=== PATIENT | male | born 1975 | race Caucasian/White ===

== ENCOUNTER → 2017-12-14 08:56 | Outpatient (CLI) | payer MEDICARE, MEDICAID, SELFPAY ==
[2017-12-14 11:12] LABS: Hemoglobin A1C 7.1 % (4.5-6.2)
[2017-12-14 13:11] LABS: ALT 44 U/L (12-78); AST 39 U/L (15-37); Albumin 3.6 g/dL (3.4-5.0); Alkaline Phosphatase 84 U/L (46-116); Bilirubin, Direct 0.18 mg/dL (0.00-0.20); Bilirubin, Total 0.5 mg/dL (0.2-1.0); CREATININE 0.79 mg/dL (0.70-1.30); Potassium 3.6 mmol/L (3.5-5.1); Total Protein 8.1 g/dL (6.4-8.2); Uric Acid 5.8 mg/dL (3.5-7.2)
[2017-12-14 13:25] LABS: Cholesterol 188 mg/dL (50-200); HDL Cholesterol 51 mg/dL (40-60); LDL CHOLESTEROL 115 mg/dL (<100); Triglyceride 153 mg/dL (30-150)
== END ==
PROVIDERS: PCP Family Medicine; Visit Provider Family Medicine
DX: I10 Essential (primary) hypertension (principal); E11.65 Type 2 diabetes mellitus with hyperglycemia; K21.9 Gastro-esophageal reflux disease without esophagitis; K76.0 Fatty (change of) liver, not elsewhere classified; M79.672 Pain in left foot; E66.01 Morbid (severe) obesity due to excess calories
CPT/HCPCS: 36415; 80061; 80076; 83721; 82565; 83036; 84132; 84550

== ENCOUNTER 2018-01-20 15:05 | Emergency (ER) | payer MEDICARE, MEDICAID, SELFPAY ==
[2018-01-20 15:15] VITALS: BP 195/92; PULSE 100; RESP 18; TEMP 37.2; O2SAT 94
[2018-01-20 18:43] VITALS: BP 188/86; PULSE 103; RESP 18; TEMP 36.8; O2SAT 93
--- NOTE | 2018-01-20 19:53 | ED.GENADUL_ITS ---
Discharge Plan Disposition Patient Disposition: HOME Condition: Stable Discharge Details Chief Complaint: RespSymp Clinical Impression: Acute bronchitis Primary Care Provider: Margarito Rashid ED Provider: Arleen Jim Home Meds and New Rx's Prescriptions: New prednisone 50 mg tablet 50 mg PO DAILY 5 Days Qty: 5 RF: 0 levofloxacin [Levaquin] 750 mg tablet 750 mg PO DAILY Qty: 4 RF: 0 No Action multivitamin [Daily Vitamin] 1 EACH tablet 1 ea PO DAILY RF: 0 clonazepam 0.5 MG tablet 0.5 mg PO BID PRNQty: 30 RF: 1 pen needle, diabetic 1 EACH needle 1 ea Miscellaneous TID Qty: 270 RF: 4 esomeprazole magnesium [Nexium] 20 MG capsule,delayed release(DR/EC) 20 mg PO DAILY Qty: 90 RF: 4 hydrochlorothiazide 25 MG tablet 1 tab PO QAM Qty: 90 RF: 4 rosuvastatin [Crestor] 40 MG tablet 0.5 tab PO HS Qty: 45 RF: 4 metoprolol succinate 100 MG tablet extended release 24 hr 100 mg PO DAILY Qty: 90 RF: 3 blood sugar diagnostic [Blood Glucose Test] 1 EACH strip 1 ea Miscellaneous TID Qty: 300 RF: 4 metformin [Glucophage] 1,000 MG tablet 1,000 mg PO BID Qty: 180 RF: 4 lancets 1 EACH misc 1 ea Miscellaneous TID Qty: 300 RF: 4 benzonatate 200 MG capsule 200 mg PO tid prn for cough Qty: 30 RF: 0 inhalational spacing device [Aerochamber Plus Flow-Vu] 1 EACH spacer 1 ea Miscellaneous PRN Qty: 1 RF: 0 insulin glargine [Basaglar KwikPen U-100 Insulin] 100 UNIT/1 ML insulin pen 84 unit SQ HS Qty: 39 RF: 3 lisinopril 40 MG tablet 1 tab PO DAILY Qty: 90 RF: 4 insulin aspart U-100 [Novolog Flexpen U-100 Insulin] 100 UNIT/1 ML insulin pen 20 - 25 units SQ AC Qty: 6 RF: 11 gabapentin 100 MG capsule 100 mg PO BID Qty: 60 RF: 2 aspirin [Children's Aspirin] 81 MG tablet,chewable 81 mg PO DAILY RF: 0 Discharge Instructions Instructions: Acute Bronchitis (ED) Additional Instructions: Drink plenty of fluids and get plenty of rest. Take Tylenol or Motrin as needed and directed for pain or fever. Take the antibiotics and steroids until finished. You should receive a call from care management regarding follow-up with a primary care doctor in 1 week for reevaluation and for referral to podiatry. Return to the emergency department any worsening or new concerning symptoms. Discharge Data Discharge Physician: Arleen Jim Medical Decision Making Patient is a 42-year-old male with history of diabetes, GERD, hypertension, hyperlipidemia who presents for cough, shortness of breath, nasal congestion for the past 5 days. Patient was here during significant ED surge and waited approximately 4 hours to be seen. He is pleasant and thankful. His oxygen saturation is 96% on room air. He is afebrile. His blood pressure is hypertensive at 188/86. He states he has been taking all of his medications regularly. He states his blood sugars have been normal and yesterday were 125. He has diffuse rhonchi and wheezing throughout. He has bilateral sinus tenderness and is noted to have nasal voice when talking. His ears and pharynx are normal to inspection. He is morbidly obese but otherwise appears nontoxic and in no acute distress. Presentation appears consistent with likely acute bronchitis versus pneumonia. Patient states that he would rather prescriptions for antibiotics and steroids and discharge. He is declining labs and chest x-ray. Patient is agreeable to albuterol neb treatment here. He has been taking Tessalon Perles at home without relief. He states he has responded to Robitussin with codeine before. We will send home with dose this evening as well as prescription for home. We will also give dose of Levaquin and prednisone here and prescription for home. Will treat with Levaquin due to patient's history of diabetes. Will place patient on care management list to arrange for follow-up appointment with his primary care doctor within the next week for reevaluation for his likely bronchitis as well as for podiatry referral for complaint of a chronic left foot ulcer. HPI General Date/Time Provider Initiated Documentation: 01/20/18 18:48 . Related Data Home Medications Medication Instructions Recorded Confirmed multivitamin [Daily Vitamin] 1 ea PO DAILY 06/04/13 01/20/18 aspirin [Children's Aspirin] 81 mg PO DAILY 12/22/13 01/20/18 clonazepam 0.5 mg PO BID PRN #30 tab-cap 02/09/01/20/18 pen needle, diabetic #270 03/29/16 01/20/18 esomeprazole magnesium [Nexium] 20 mg PO DAILY #90 tab-cap 01/25/17 01/20/18 hydrochlorothiazide 1 tab PO QAM #90 tab-cap 03/16/17 01/20/18 rosuvastatin [Crestor] 0.5 tab PO HS #45 tab-cap 04/26/17 01/20/18 blood sugar diagnostic [Glucose #300 strip 05/10/17 01/20/18 Test Strip] lancets #300 ea 05/10/17 01/20/18 metformin [Glucophage] 1,000 mg PO BID #180 tab-cap 05/10/17 01/20/18 metoprolol succinate 100 mg PO DAILY #90 tab-cap 05/10/17 01/20/18 benzonatate 200 mg PO tid prn for cough #30 05/23/17 01/20/18 tab-cap inhalational spacing device #1 unit 05/23/17 01/20/18 [Aerochamber Plus Flow-Vu] insulin glargine [Basaglar Kwikpen 84 unit SQ HS #39 pen 10/31/17 01/20/18 U-100] lisinopril 1 tab PO DAILY #90 tab 11/18/17 01/20/18 gabapentin 100 mg PO BID #60 tab-cap 12/14/17 01/20/18 insulin aspart U-100 [Novolog 20 - 25 units SQ AC #6 pen 12/14/17 01/20/18 Flexpen] levofloxacin [Levaquin] 750 mg PO DAILY #4 tab 01/20/18 prednisone 50 mg PO DAILY 5 Days #5 tab 01/20/18 Previous Rx's Medication Instructions Recorded esomeprazole magnesium [Nexium] 20 mg PO DAILY #90 tab-cap 01/25/17 hydrochlorothiazide 1 tab PO QAM #90 tab-cap 03/16/17 rosuvastatin [Crestor] 0.5 tab PO HS #45 tab-cap 04/26/17 blood sugar diagnostic [Glucose #300 strip 05/10/17 Test Strip] lancets #300 ea 05/10/17 metformin [Glucophage] 1,000 mg PO BID #180 tab-cap 05/10/17 metoprolol succinate 100 mg PO DAILY #90 tab-cap 05/10/17 benzonatate 200 mg PO tid prn for cough #30 05/23/17 tab-cap inhalational spacing device #1 unit 05/23/17 [Aerochamber Plus Flow-Vu] insulin glargine [Basaglar Kwikpen 84 unit SQ HS #39 pen 10/31/17 U-100] lisinopril 1 tab PO DAILY #90 tab 11/18/17 gabapentin 100 mg PO BID #60 tab-cap 12/14/17 insulin aspart U-100 [Novolog 20 - 25 units SQ AC #6 pen 12/14/17 Flexpen] levofloxacin [Levaquin] 750 mg PO DAILY #4 tab 01/20/18 prednisone 50 mg PO DAILY 5 Days #5 tab 01/20/18 Allergies Allergy/AdvReac Type Severity Reaction Status Date / Time No Known Allergies Allergy Unverified 01/20/18 16:32 General Stated Complaint: RespSymp ARLEY: 3 PFSH Social History Smoking/Tobacco Use Status: Current-Occasional Surgical History Repair of umbilical hernia Course Vital Signs Temperature 99.0 F 01/20/18 15:15 Pulse 100 H 01/20/18 15:15 Respiratory Rate 18 01/20/18 15:15 Blood Pressure 195/92 H 01/20/18 15:15 Pulse Oximetry 94 L 01/20/18 15:15 Temperature 98.2 F 01/20/18 18:43 Temperature Source Skin 01/20/18 18:43 Pulse 103 H 01/20/18 18:43 Respiratory Rate 18 01/20/18 18:43 Respiratory Effort 01/20/18 16:33 Blood Pressure 188/86 H 01/20/18 18:43 Blood Pressure Position Sitting 01/20/18 15:15 Pulse Oximetry 93 L 01/20/18 18:43 Oxygen Delivery Method Room Air 01/20/18 18:43 Oxygen Flow Rate 0 01/20/18 18:43 Pain Level 3 01/20/18 18:43
[2018-01-20 20:00] VITALS: PULSE 103; RESP 18; O2SAT 93
[2018-01-20] MEDS: Albuterol/Ipratropium 3 ML UPD VIAL UPD (20:00)
[2018-01-20] MEDS: predniSONE 20 MG TAB 60 MG PO (20:02)
[2018-01-20] MEDS: LEVOFLOXACIN 500 MG, LEVOFLOXACIN 250 MG 750 MG PO (20:03)
[2018-01-20 20:10] VITALS: BP 188/87; PULSE 104; RESP 18; TEMP 37.8; O2SAT 93
[2018-01-20 20:13] VITALS: PULSE 104; RESP 18; O2SAT 93
[2018-01-20] MEDS: guaiFENesin/CODEINE PHOSPHATE 10 ML CUP PO (20:16)
[2018-01-20] MEDS: Albuterol HFA 8 GM 60 PUFF INH IH (20:20)
[2018-01-20 20:25] VITALS: BP 188/87; PULSE 104; RESP 18; TEMP 37.8; O2SAT 93
--- NOTE | 2018-01-23 13:09 | PDOC.ERCMPRO ---
Care Management Progress Note 01/23/18-Pt seen on 01/20/18 for bronchitis and foot ulcer by Dr. Roseann Jim. Referral f/u faxed to [facility].
== END 2018-01-20 20:28 | disposition home or self-care (01) ==
PROVIDERS: Emergency Provider Physician Assistant; PCP Family Medicine
DX: J20.9 Acute bronchitis, unspecified (principal); E11.9 Type 2 diabetes mellitus without complications; Z79.4 Long term (current) use of insulin; I10 Essential (primary) hypertension
CPT/HCPCS: 94640; 99283; 99281; J7512; J7620

== ENCOUNTER 2018-12-20 08:06 | Outpatient (CLI) | payer MEDICARE, MEDICAID, SELFPAY ==
[2018-12-20 09:19] LABS: CREATININE 0.86 mg/dL (0.70-1.30); Potassium 3.6 mmol/L (3.5-5.1)
[2018-12-20 09:26] LABS: Hemoglobin A1C 7.1 % (4.5-6.2)
== END 2018-12-20 08:26 ==
PROVIDERS: PCP Family Medicine; Visit Provider Family Medicine
DX: E11.9 Type 2 diabetes mellitus without complications (principal)
CPT/HCPCS: 36415; 82565; 83036; 84132

== ENCOUNTER → 2019-03-29 12:43 | Outpatient (BNVA) | payer MEDICARE, MEDICAID, SELFPAY | PROVIDERS: PCP Family Medicine; Referring Provider Family Medicine; Visit Provider Nurse Practitioner Gerontology | DX: N48.0 Leukoplakia of penis (principal); L98.499 Non-pressure chronic ulcer of skin of other sites with unspecified severity; R30.0 Dysuria; E11.42 Type 2 diabetes mellitus with diabetic polyneuropathy; Z79.4 Long term (current) use of insulin; I10 Essential (primary) hypertension | CPT/HCPCS: 99204; 99215 ==

== ENCOUNTER 2019-03-29 13:56 | Outpatient (REF) | payer MEDICARE, MEDICAID, SELFPAY | END 2019-03-29 14:16 | LOC: LBN 13:56 | PROVIDERS: PCP Family Medicine; Visit Provider Nurse Practitioner Gerontology | DX: R30.0 Dysuria (principal) | CPT/HCPCS: 87077; 87070; 87205 ==

== ENCOUNTER → 2019-04-12 10:28 | Outpatient (BNVA) | payer MEDICARE, MEDICAID, SELFPAY | PROVIDERS: PCP Family Medicine; Referring Provider Family Medicine; Visit Provider Nurse Practitioner Gerontology | DX: N48.0 Leukoplakia of penis (principal); L98.499 Non-pressure chronic ulcer of skin of other sites with unspecified severity; E11.42 Type 2 diabetes mellitus with diabetic polyneuropathy; Z79.4 Long term (current) use of insulin | CPT/HCPCS: 99213 ==

== ENCOUNTER → 2019-04-27 13:41 | Outpatient (BNVA) | payer MEDICARE, MEDICAID, SELFPAY | PROVIDERS: PCP Family Medicine; Referring Provider Family Medicine; Visit Provider Urology | DX: N48.0 Leukoplakia of penis (principal); E11.42 Type 2 diabetes mellitus with diabetic polyneuropathy | CPT/HCPCS: 99213 ==

== ENCOUNTER 2019-05-30 11:34 | Outpatient (CLI) | payer MEDICARE, MEDICAID, SELFPAY ==
[2019-05-30 13:03] LABS: Calculated LDL 105 mg/dL (<100); Cholesterol 180 mg/dL (<200); HDL Cholesterol 47 mg/dL (40-60); Hemoglobin A1C 7.9 % (3.8-5.6); Triglyceride 140 mg/dL (<150)
[2019-05-31 14:33] LABS: PSA, Screening 0.2 ng/mL (0.0-2.5)
== END 2019-05-30 11:54 ==
PROVIDERS: PCP Family Medicine; Visit Provider Family Medicine
DX: E78.5 Hyperlipidemia, unspecified (principal); R73.9 Hyperglycemia, unspecified; N13.8 Other obstructive and reflux uropathy; N40.1 Benign prostatic hyperplasia with lower urinary tract symptoms; Z12.5 Encounter for screening for malignant neoplasm of prostate
CPT/HCPCS: 36415; 80061; 84153; 83036

== ENCOUNTER 2019-09-29 05:59 | Emergency (ER) | payer MEDICARE, MEDICAID, SELFPAY ==
[2019-09-29 06:03] VITALS: BP 160/67; PULSE 104; TEMP 36.5; O2SAT 97
--- NOTE | 2019-09-29 06:10 | W.ED.GENAD ---
Discharge Plan Disposition Patient Disposition: HOME Condition: Stable Discharge Details Chief Complaint: Urinary Clinical Impression: Acute UTI Primary Care Provider: Margarito Rashid ED Provider: Gold Martin Guild Meds and New Rx's Prescriptions: New levofloxacin 750 mg tablet 750 mg PO DAILY Qty: 5 RF: 0 Continued terbinafine HCl 250 mg tablet 250 mg PO DAILY Qty: 30 RF: 0 lisinopril 40 mg tablet 40 mg PO DAILY Qty: 90 RF: 4 (DME) pen needle, diabetic 31 gauge x 1/6 needle 1 ea Miscellaneous TID Qty: 360 RF: 3 rosuvastatin [Crestor] 40 mg tablet 20 mg PO HS Qty: 45 RF: 4 semaglutide 3 mg tablet 3 mg PO DAILY Qty: 90 RF: 3 cpap Inhalation RF: 0 hydrochlorothiazide 25 mg tablet 25 mg PO QAM Qty: 90 RF: 4 insulin aspart U-100 [Novolog Flexpen U-100 Insulin] 100 unit/mL (3 mL) insulin pen 20 - 25 unit subcut AC MDD 75 units/day Qty: 15 RF: 4 terbinafine HCl 250 mg tablet 250 mg PO DAILY RF: 0 benzonatate 200 mg capsule 200 mg PO TID PRN (Reason: cough) Qty: 30 RF: 0 codeine-guaifenesin 10-100 mg/5 mL liquid 5 ml PO Q6H PRN (Reason: cough) Qty: 120 RF: 0 metformin [Glucophage] 1,000 mg tablet 1,000 mg PO BID Qty: 180 RF: 4 metoprolol succinate 200 mg tablet extended release 24 hr 200 mg PO DAILY Qty: 90 RF: 3 multivitamin [Daily Vitamin] 1 EACH tablet 1 ea PO DAILY RF: 0 clonazepam 0.5 MG tablet 0.5 mg PO BID PRNQty: 30 RF: 1 (DME) lancets 1 EACH misc 1 ea Miscellaneous TID Qty: 300 RF: 4 (DME) Aerochamber Plus Flow-Vu 1 EACH spacer 1 ea Miscellaneous PRN Qty: 1 RF: 0 Basaglar KwikPen U-100 Insulin 100 unit/mL (3 mL) insulin pen 84 unit SC DAILY Qty: 30 RF: 5 omeprazole 40 mg capsule,delayed release(DR/EC) 40 mg PO DAILY Qty: 90 RF: 3 (DME) blood sugar diagnostic [Blood Glucose Test] Strip 1 ea Miscellaneous TID Qty: 300 RF: 4 aspirin [Children's Aspirin] 81 MG tablet,chewable 81 mg PO DAILY RF: 0 Discharge Instructions Instructions: Urinary Tract Infection in Men (ED) Additional Instructions: follow up with your primary care provider's office in 1-2 weeks to make sure the blood has cleared from the urine if you feel more ill, have high fevers or severe back or abdominal pain return to the emergency department Medical Decision Making 44 yo male with hx of hld, DM, htn, bph, who comes in with noticing blood and burning with urination. Denies fevers, chills, abdominal pain, back pain. Never had this problem in the past and denies any symptoms yesterday. HE arrives HD stable, no cva tenderness, no abdominal tenderness, his urine he provided is bloody. Suspect uti given the dysuria, will check UA. Given lack of back or flank pain doubt kidney stone so will defer imaging at this time. He was a smoker so concern for possible cancer as well, will need f/u testing to ensure cleareance of blood if UA is consistent with uti. UA consistent with uti, will start on levofloxacin and advised f/u with pcp, return precautions given Differential Diagnosis Differential Diagnosis: prostatitis, uti, pyelo Lab Data Lab results reviewed: Yes I reviewed the patient's lab results. HPI General Mode of arrival: ambulatory. Date/Time Provider Initiated Documentation: 09/29/19 06:01. Limitations to Documentation: no limitations. Information obtained by: patient. History of Present Illness 44 year old M presents to the emergency department with the chief complaint of hematuria, described as moderate, No relieving factors improve symptom(s), No exacerbating factors reported . Patient did receive the following treatments prior to arrival, none Related Data Home Medications Medication Instructions Recorded Confirmed multivitamin [Daily Vitamin] 1 ea PO DAILY 06/04/13 09/29/19 aspirin [Children's Aspirin] 81 mg PO DAILY 12/22/13 09/29/19 clonazepam 0.5 mg PO BID PRN #30 tab-cap 02/10/16 09/29/19 lancets #300 ea 05/10/17 05/30/19 Aerochamber Plus Flow-Vu #1 unit 05/23/17 05/30/19 cpap INHALATION 10/11/18 05/30/19 terbinafine HCl 250 mg tablet 250 mg PO DAILY #30 tab 01/10/19 05/30/19 Novolog Flexpen U-100 Insulin 100 20 - 25 unit SUBCUT AC #15 ml NS 02/14/19 09/29/19 unit/mL (3 mL) subcutaneous MDD 75 units/day hydrochlorothiazide 25 mg tablet 25 mg PO QAM #90 tab-cap 02/14/19 09/29/19 terbinafine HCl 250 mg tablet 250 mg PO DAILY tab 03/09/19 09/29/19 insulin glargine 100 unit/mL (3 84 unit SC DAILY #30 ml 05/07/19 09/29/19 mL) subcutaneous pen benzonatate 200 mg capsule 200 mg PO TID PRN #30 tab-cap 05/30/19 09/29/19 codeine 10 mg-guaifenesin 100 mg/5 5 ml PO Q6H PRN #120 ml 05/30/19 09/29/19 mL oral liquid metformin 1,000 mg tablet 1,000 mg PO BID #180 tab-cap 05/30/19 09/29/19 metoprolol succinate 200 mg 200 mg PO DAILY #90 tab 05/30/19 09/29/19 tablet,extended release 24 hr omeprazole 40 mg capsule,delayed 40 mg PO DAILY #90 cap 07/12/19 09/29/19 release blood sugar diagnostic #300 strip 07/13/19 lisinopril 40 mg tablet 40 mg PO DAILY #90 tab 09/05/19 09/29/19 pen needle, diabetic 31 gauge x #360 each 09/05/19 09/05/1904/30 rosuvastatin 40 mg tablet 20 mg PO HS #45 tab-cap 09/05/19 09/29/19 semaglutide 3 mg tablet 3 mg PO DAILY #90 tab 09/05/19 09/29/19 levofloxacin 750 mg PO DAILY #5 tab 09/29/19 Previous Rx's Medication Instructions Recorded lancets #300 ea 05/10/17 Aerochamber Plus Flow-Vu #1 unit 05/23/17 terbinafine HCl 250 mg tablet 250 mg PO DAILY #30 tab 01/10/19 Novolog Flexpen U-100 Insulin 100 20 - 25 unit SUBCUT AC #15 ml NS 02/14/19 unit/mL (3 mL) subcutaneous MDD 75 units/day hydrochlorothiazide 25 mg tablet 25 mg PO QAM #90 tab-cap 02/14/19 insulin glargine 100 unit/mL (3 84 unit SC DAILY #30 ml 05/07/19 mL) subcutaneous pen benzonatate 200 mg capsule 200 mg PO TID PRN #30 tab-cap 05/30/19 codeine 10 mg-guaifenesin 100 mg/5 5 ml PO Q6H PRN #120 ml 05/30/19 mL oral liquid metformin 1,000 mg tablet 1,000 mg PO BID #180 tab-cap 05/30/19 metoprolol succinate 200 mg 200 mg PO DAILY #90 tab 05/30/19 tablet,extended release 24 hr omeprazole 40 mg capsule,delayed 40 mg PO DAILY #90 cap 07/12/19 release blood sugar diagnostic #300 strip 07/13/19 lisinopril 40 mg tablet 40 mg PO DAILY #90 tab 09/05/19 pen needle, diabetic 31 gauge x #360 each 09/05/1904/30 rosuvastatin 40 mg tablet 20 mg PO HS #45 tab-cap 09/05/19 semaglutide 3 mg tablet 3 mg PO DAILY #90 tab 09/05/19 levofloxacin 750 mg PO DAILY #5 tab 09/29/19 Allergies Allergy/AdvReac Type Severity Reaction Status Date / Time No Known Allergies Allergy Unverified 05/30/19 11:04 General ARLEY: 3 Review of Systems All systems reviewed & are unremarkable except as noted in HPI and below Constitutional Constitutional: Denies chills, Denies fever(s) and Denies weakness Cardiovascular Cardiovascular: Denies dyspnea Respiratory Respiratory: Denies cough and Denies dyspnea Gastrointestinal Gastrointestinal: Denies abdominal pain, Denies nausea and Denies vomiting Musculoskeletal Musculoskeletal: Denies joint swelling Neurologic Neurologic: Denies weakness [facility] Medical History (Updated 09/29/19 @ 06:26 by Gold Martin MD) Diabetic neuropathy, type II diabetes mellitus (Acute) Morbid obesity (Acute) Onychomycosis (Acute) Surgical History (Updated 10/05/18 @ 13:20 by Lance Blanchard) Repair of umbilical hernia Social History (Updated 01/25/18 @ 13:44 by Isaura Velasquez [employer]) Smoking/Tobacco Use Status: Current-Occasional Tobacco: How many years used: 25 Alcohol Intake: current Alcohol Intake frequency: a few times a week Drug use: Never Substance use type: does not use Do you feel safe at home: Yes Do you feel safe in your relationship?: Yes Exam Const General: no acute distress Orientation: alert HENMT Head: normal to inspection Ears: external ears normal General nose exam: external nose normal Mouth: moist mucous membranes Eyes General: appearance normal, both eyes and all related structures Neck Neck: normal visual inspection Resp Effort & Inspection: normal respiratory effort and able to speak in complete sentences Cardio Rate: regular rate GI Palpation: soft Back/Spine/Pelvis Back: no CVA tenderness Skin General skin exam: no rashes or lesions noted Neuro General: patient alert and patient oriented x3 Extrem General: normal to inspection Psych Mental Status: mental status grossly normal
[2019-09-29 06:16] LABS: Bilirubin Large (Negative); Blood Large (Negative); Clarity Turbid (Clear); Glucose 100 mg/dL (Negative); Ketones 40 mg/dL (Negative); Leukocyte Esterase Large (Negative); Nitrite Positive (Negative); Specific Gravity <= 1.005 (1.005-1.025); pH 8.5 (5-8)
[2019-09-29 06:19] LABS: C & S Indicated? C&S Done As Ordered
[2019-09-29 06:20] LABS: RBC >50 HPF (0-2)
[2019-09-29] MEDS: levoFLOXacin 500 MG, levoFLOXacin 250 MG 750 MG PO (06:34)
== END 2019-09-29 06:33 | disposition home or self-care (01) ==
LOC: ER 06:30
PROVIDERS: Emergency Provider Emergency Medicine; PCP Family Medicine
DX: N39.0 Urinary tract infection, site not specified (principal); R31.9 Hematuria, unspecified; I10 Essential (primary) hypertension; E11.9 Type 2 diabetes mellitus without complications
CPT/HCPCS: 99283; 81003; 81015; 87086

== ENCOUNTER 2020-03-14 15:17 | Outpatient (REF) | payer MEDICARE, MEDICAID, SELFPAY ==
[2020-03-17 22:29] LABS: Patient Race White; SARS-CoV-2 RNA Undetected (Undetected); SARS-CoV-2 Specimen Source Nasal
== END 2020-03-14 15:37 ==
LOC: LBN 15:17
PROVIDERS: PCP Family Medicine; Visit Provider Family Medicine
DX: J01.90 Acute sinusitis, unspecified (principal)
CPT/HCPCS: U0003

== ENCOUNTER 2020-03-21 03:34 | Outpatient (CLI) | payer MEDICARE, MEDICAID, SELFPAY ==
[2020-03-21 16:29] LABS: CREATININE 1.04 mg/dL (0.70-1.30); Potassium 3.9 mmol/L (3.5-5.1)
== END 2020-03-21 03:54 ==
PROVIDERS: PCP Family Medicine; Visit Provider Family Medicine
DX: I10 Essential (primary) hypertension (principal); R73.9 Hyperglycemia, unspecified
CPT/HCPCS: 36415; 82565; 83036; 84132

== ENCOUNTER 2020-10-29 19:13 | Outpatient (REF) | payer MEDICARE, MEDICAID, SELFPAY ==
[2020-10-31 11:50] LABS: COVID-19 RT-PCR UVMMC Result Negative (Negative)
== END 2020-10-29 19:14 | disposition home or self-care (01) ==
LOC: LBN 19:13
PROVIDERS: PCP Family Medicine; Visit Provider Family Medicine
DX: Z20.822 Contact with and (suspected) exposure to COVID-19 (principal)
CPT/HCPCS: U0003

== ENCOUNTER 2021-05-26 18:41 | Outpatient (REF) | payer MEDICARE, MEDICAID, SELFPAY ==
[2021-05-28 12:49] LABS: COVID-19 RT-PCR UVMMC Result Negative (Negative)
== END 2021-05-26 18:42 | disposition home or self-care (01) ==
LOC: LBN 18:41
PROVIDERS: PCP Family Medicine; Visit Provider Family Medicine
DX: N39.0 Urinary tract infection, site not specified (principal); Z20.822 Contact with and (suspected) exposure to COVID-19
CPT/HCPCS: 87077; U0003; U0005; 87086; 87186

== ENCOUNTER → 2021-08-12 01:32 | Outpatient (CLI) | payer MEDICARE, MEDICAID, SELFPAY ==
--- NOTE | 2021-08-12 07:45 | DI.RAD_ITS ---
Exam(s) XR SHOULDER LT COMPLETE 2+V EXAM: XR SHOULDER LT COMPLETE 2+V CLINICAL HISTORY: left shoulder pain; no trauma,m25.512 TECHNIQUE: COMPARISON: No exams were available for comparison FINDINGS: Six views were obtained. There is probable mild narrowing of the cartilaginous joint space of the gl enohumeral joint. There are prominent osteophytes of the glenoid and to a lesser degree the humeral head. There are mild hypertrophic degenerative changes of the AC joint. IMPRESSION: Degenerative changes of glenohumeral joint and acromioclavicular joint as described above. No other significant findings. RADIATION DOSE DELIVERED: Total DLP
== END ==
PROVIDERS: PCP Family Medicine; Visit Provider Family Medicine
DX: M25.512 Pain in left shoulder (principal); M19.012 Primary osteoarthritis, left shoulder
CPT/HCPCS: 73030

== ENCOUNTER → 2021-08-25 14:25 | Outpatient (BNVA) | payer MEDICARE, MEDICAID, SELFPAY | PROVIDERS: PCP Family Medicine; Referring Provider Family Medicine; Visit Provider Physician Assistant | DX: M75.52 Bursitis of left shoulder (principal); M75.82 Other shoulder lesions, left shoulder | CPT/HCPCS: 99214 ==

== ENCOUNTER 2021-09-23 03:55 | Outpatient (CLI) | payer MEDICARE, MEDICAID, SELFPAY | END 2021-09-23 03:56 | disposition home or self-care (01) | LOC: LBO 03:55 | PROVIDERS: PCP Family Medicine; Visit Provider Family Medicine ==

== ENCOUNTER 2021-10-15 03:18 | Outpatient (CLI) | payer MEDICARE, MEDICAID, SELFPAY ==
[2021-10-15 14:00] LABS: Hemoglobin A1C 7.4 % (<5.7)
[2021-10-15 14:08] LABS: CREATININE 0.9 mg/dL (0.70-1.30); Calculated LDL 95 mg/dL (<100); Cholesterol 186 mg/dL (<200); HDL Cholesterol 55 mg/dL (40-60); Potassium 3.9 mmol/L (3.5-5.1); Triglyceride 184 mg/dL (<150)
== END 2021-10-15 03:19 | disposition home or self-care (01) ==
LOC: LBO 03:18
PROVIDERS: PCP Family Medicine; Visit Provider Family Medicine
DX: I10 Essential (primary) hypertension (principal); E11.9 Type 2 diabetes mellitus without complications
CPT/HCPCS: 36415; 80061; 82565; 83036; 84132

== ENCOUNTER 2022-03-04 16:43 | Outpatient (REF) | payer MEDICARE, MEDICAID, SELFPAY ==
[2022-03-04 21:28] LABS: Microalb ug/mg Crea 38.6 ug/mg Cr
== END 2022-03-04 16:44 | disposition home or self-care (01) ==
LOC: LBN 16:43
PROVIDERS: PCP Family Medicine; Visit Provider Family Medicine
DX: E11.40 Type 2 diabetes mellitus with diabetic neuropathy, unspecified (principal)
CPT/HCPCS: 82043; 82570

== ENCOUNTER 2022-05-19 02:47 | Outpatient (CLI) | payer MEDICARE, MEDICAID, SELFPAY ==
[2022-05-19 12:23] LABS: Potassium 4.2 mmol/L (3.5-5.1)
== END 2022-05-19 02:48 | disposition home or self-care (01) ==
PROVIDERS: PCP Family Medicine; Visit Provider Family Medicine
DX: I10 Essential (primary) hypertension (principal)
CPT/HCPCS: 36415; 84132

== ENCOUNTER 2023-03-06 07:24 | Emergency (ER) | payer MEDICARE, MEDICAID, SELFPAY ==
[2023-03-06 07:25] VITALS: BP 148/97; PULSE 99; RESP 20; TEMP 36.8; O2SAT 96
--- NOTE | 2023-03-06 08:09 | ED.GENADUL_ITS ---
Discharge Plan Disposition Patient Disposition: Home Condition: Good Discharge Details Clinical Impression: Vomiting Primary Care Provider: Margarito Rashid ED Provider: Candice Jacob Home Meds and New Rx's Prescriptions: New ondansetron 4 mg tablet,disintegrating 4 mg PO Q8H PRNQty: 20 0RF No Action (DME) pen needle, diabetic 31 gauge x 1/6 needle 1 ea Miscellaneous TID Qty: 360 3RF Rx Instructions: inject 4 x/day amitriptyline 10 mg tablet 10 mg PO QHS Qty: 30 2RF amlodipine 5 mg tablet 5 mg PO DAILY Qty: 90 3RF ketoconazole 2 % cream 1 applic topical DAILY 90 Days Qty: 60 3RF Ozempic 2 mg/dose (8 mg/3 mL) pen injector 2 mg subcut QWEEK Qty: 3 2RF cpap Inhalation pseudoephedrine HCl 30 mg tablet 30 mg PO Q6H PRN (Reason: nasal congestion) Qty: 15 0RF clonazepam 0.5 mg tablet 0.5 mg PO BID PRN (Reason: panic attack) Qty: 15 0RF hydrochlorothiazide 25 mg tablet 25 mg PO QAM Qty: 90 4RF multivitamin [Daily Vitamin] 1 EACH tablet 1 ea PO DAILY (DME) Aerochamber Plus Flow-Vu 1 EACH spacer 1 ea Miscellaneous PRN Qty: 1 0RF albuterol sulfate [Ventolin HFA] 90 mcg/actuation HFA aerosol inhaler 2 puff inhalation QID PRN (Reason: shortness of breath or wheezing) Qty: 8.5 5RF (DME) Blood Glucose Test Strip 1 ea Miscellaneous TID Qty: 300 4RF Rx Instructions: test TID (DME) lancets 28 gauge misc 1 ea Miscellaneous TID Qty: 300 4RF Rx Instructions: test TID (DME) blood-glucose meter [Accu-Chek Rody Plus Meter] Misc See Rx Instructions .ROUTE .MEDSUPPLY Qty: 1 0RF Rx Instructions: As directed (DME) lancets [OneTouch Delica Lancets] 33 gauge misc See Rx Instructions .ROUTE DAILY Qty: 300 4RF Rx Instructions: E11.9 TID (DME) blood-glucose meter Misc See Rx Instructions .ROUTE .MEDSUPPLY Qty: 1 0RF Rx Instructions: E11.9 verio meter (DME) Blood Glucose Test Strip See Rx Instructions .ROUTE .MEDSUPPLY Qty: 400 5RF Rx Instructions: AC and HS E11.9 on insulin; one touch verio test strip metoprolol succinate 200 mg tablet extended release 24 hr 200 mg PO DAILY Qty: 90 3RF spironolactone [Aldactone] 25 mg tablet 25 mg PO DAILY Qty: 90 3RF omeprazole 40 mg capsule,delayed release(DR/EC) 40 mg PO DAILY Qty: 90 3RF insulin aspart U-100 [Novolog FlexPen U-100 Insulin] 100 unit/mL (3 mL) insulin pen 20 - 25 unit subcut AC MDD 75 units/day Qty: 15 4RF Rx Instructions: E11.9 metformin 1,000 mg tablet 1,000 mg PO BID Qty: 180 3RF Jardiance 10 mg tablet 10 mg PO DAILY Qty: 90 3RF rosuvastatin [Crestor] 40 mg tablet 20 mg PO HS Qty: 45 4RF lisinopril 40 mg tablet 40 mg PO DAILY Qty: 90 3RF codeine-guaifenesin 10-100 mg/5 mL liquid 5 ml PO Q6H PRN (Reason: cough) Qty: 60 0RF insulin glargine [Basaglar KwikPen U-100 Insulin] 100 unit/mL (3 mL) insulin pen 84 unit SC DAILY Qty: 30 10RF semaglutide 1 mg/dose (4 mg/3 mL) pen injector 1 mg subcut QWEEK Qty: 3 2RF aspirin [Children's Aspirin] 81 MG tablet,chewable 81 mg PO DAILY Discharge Instructions Instructions: Acute Nausea and Vomiting (ED) Additional Instructions: Zofran up to every 8 hours as needed for vomiting. Call your primary care doctor tomorrow to schedule an appointment within three days to follow up on your visit here. Return to the emergency department for new or worsening symptoms, including inability to keep down fluids, feeling like you are going to pass out, blood in your vomit, worsening abdominal pain, or if you have any other concerns. Referrals: Margarito Rahsid MD [Primary Care Provider] - Medical Decision Making 47yo M with HTN, DM, HLD, obesity, presenting for vomiting; onset yesterday evening, unable to keep anything down. Lightheaded. Slightly tachycardiac on arrival, vital signs otherwise reassuring, no abdominal tenderness. Not overtly concerning for sepsis. Will give 1L IVFB, zofran. With reassuring abdominal exam, will not pursue CT imaging at this time, low suspcion for acute/surgical intrabdominal process, obstruction, appendicitis, etc. Labs reviewed as below, CBC & CMP reassuring with no actionable abnormalities. On reassessment he remains non-toxic appearing with a benign abdominal exam, symptoms improved and able to tolerate water and crackers. Discharged home; discharge instructions and return precautions were reviewed with patient who verbalized understanding. All questions were answered and he is in full agreement with the plan. Lab Data Lab results reviewed: Yes I reviewed the patient's lab results. Labs: Laboratory Tests Range/Units 03/06/23 08:04 WBC (4.4-10.8) 10^3/uL 12.38 H RBC (4.36-5.78) 10^6/uL 6.11 H Hgb (13.5-17.5) g/dL 17.5 Hct (40.0-50.0) % 52.8 H MCV (80-95) fL 86 MCH (27.0-33.0) pg 28.6 MCHC (32.0-36.0) % 33.1 RDW (11.8-14.1) % 14.3 H Plt Count (130-400) 10^3/uL 324 MPV (8.0-11.0) fL 10.5 Immature Gran % 0.3 Neutrophils % 83.8 Lymphocytes % 11.1 Monocytes % 2.9 Eosinophils % 1.3 Basophils % 0.6 Nucleated RBC % (0.0-0.3) % 0.0 Absolute Neutrophils (1.2-6.7) 10^3/uL 10.37 H Absolute Lymphocytes (1.2-3.4) 10^3/uL 1.37 Absolute Monocytes (0.1-0.8) 10^3/uL 0.36 Absolute Eosinophils (0.0-0.7) 10^3/uL 0.16 Absolute Basophils (0.0-0.2) 10^3/uL 0.07 RBC Morphology Normal Sodium (136-145) mmol/L 134 L Potassium (3.5-5.1) mmol/L 3.9 Chloride (98-107) mmol/L 97 L Carbon Dioxide (21.0-32.0) mmol/L 29.5 Anion Gap (3-11) mmol/L 7.5 BUN (7-18) mg/dL 12 Creatinine (0.70-1.30) mg/dL 1.2 Est GFR (CKD-EPI 2020) (mL/min/1.73m2) 74.60 Glucose (74-106) mg/dL 176 H Calcium (8.5-10.1) mg/dL 10.1 Magnesium (1.8-2.4) mg/dL 1.7 L Total Bilirubin (0.2-1.0) mg/dL 0.9 AST (15-37) U/L 23 ALT (16-63) U/L 31 Alkaline Phosphatase (46-116) U/L 89 Total Protein (6.4-8.2) g/dL 9.1 H Albumin (3.4-5.0) g/dL 4.0 HPI General Mode of arrival: ambulatory . Date/Time Provider Initiated Documentation: 03/06/23 07:40 . Limitations to Documentation: no limitations . Information obtained by: patient . HPI Narrative: 47yo M with HTN, DM, HLD, obesity, presenting for vomiting. Symptoms started yesterday evening, has been vomiting all night and unable to keep anything down. Nonbloody nonbilious. Normal bowel movement yesterday. No abdominal pain. Feels slightly lightheaded. Otherwise in his usual state of health with no fevers, chills, rash, diarreha, chest pain, shortness of breath, numbness, weakness, or other concerns. Related Data Home Medications Medication Instructions Recorded Confirmed multivitamin (Daily Vitamin tablet) 1 ea PO DAILY 06/04/13 03/06/23 aspirin 81 mg chewable tablet 81 mg PO DAILY 12/22/13 03/06/23 (Children's Aspirin) inhalational spacing device #1 unit 05/23/17 03/06/23 (Aerochamber Plus Flow-Vu) cpap inhalation 10/11/18 02/01/23 pen needle, diabetic 31 gauge x #360 ea 09/05/19 03/06/23 1/6 amitriptyline 10 mg tablet 10 mg PO QHS #30 tabs 01/11/20 03/06/23 pseudoephedrine HCl 30 mg tablet 30 mg PO Q6H PRN nasal congestion 03/14/20 03/06/23 #15 tabs albuterol sulfate 90 mcg/actuation 2 puff inhalation QID PRN 04/01/20 03/06/23 aerosol inhaler (Ventolin HFA) shortness of breath or wheezing #8.5 grams clonazepam 0.5 mg tablet 0.5 mg PO BID PRN panic attack #15 02/13/21 03/06/23 tab-caps blood sugar diagnostic (Blood #300 strips 10/27/21 03/06/23 Glucose Test strips) blood-glucose meter (Accu-Chek #1 ea 10/27/21 03/06/23 Rody Plus Meter) lancets 28 gauge #300 ea 10/27/21 03/06/23 blood sugar diagnostic (Blood #400 ea 10/29/21 03/06/23 Glucose Test strips) blood-glucose meter #1 ea 10/29/21 03/06/23 lancets 33 gauge (OneTouch Delica #300 ea 10/29/21 03/06/23 Lancets) hydrochlorothiazide 25 mg tablet 25 mg PO QAM #90 tab-caps 03/04/22 03/06/23 metoprolol succinate 200 mg 200 mg PO DAILY #90 tabs 05/06/22 03/06/23 tablet,extended release 24 hr amlodipine 5 mg tablet 5 mg PO DAILY #90 tabs 06/03/22 03/06/23 spironolactone 25 mg tablet 25 mg PO DAILY #90 tabs 06/07/22 03/06/23 (Aldactone) omeprazole 40 mg capsule,delayed 40 mg PO DAILY #90 caps 07/05/22 03/06/23 release Novolog FlexPen U-100 Insulin 100 20 - 25 unit (0.2 - 0.25 mL) 07/22/22 03/06/23 unit/mL (3 mL) subcutaneous subcut AC #15 mL (insulin aspart U-100) metformin 1,000 mg tablet 1,000 mg PO BID #180 tab-caps 11/09/22 03/06/23 empagliflozin 10 mg tablet 10 mg PO DAILY #90 tabs 11/26/22 03/06/23 (Jardiance) rosuvastatin 40 mg tablet (Crestor) 20 mg (1/2 x 40 mg) PO HS #45 01/07/23 03/06/23 tab-caps lisinopril 40 mg tablet 40 mg PO DAILY #90 tabs 01/15/23 03/06/23 semaglutide 2 mg/dose (8 mg/3 mL) 2 mg (0.75 mL) subcut QWEEK #3 mL 01/19/23 03/06/23 subcutaneous pen injector (Ozempic) codeine 10 mg-guaifenesin 100 mg/5 5 ml PO Q6H PRN cough #60 mL 01/20/23 03/06/23 mL oral liquid ketoconazole 2 % topical cream 1 applic topical DAILY 3 months 02/01/23 03/06/23 #60 grams insulin glargine 100 unit/mL (3 84 unit (0.84 mL) subcut DAILY #30 02/09/23 03/06/23 mL) subcutaneous pen (Basaglar mL KwikPen U-100 Insulin) semaglutide 1 mg/dose (4 mg/3 mL) 1 mg (0.75 mL) subcut QWEEK #3 mL 02/21/23 03/06/23 subcutaneous pen injector ondansetron 4 mg disintegrating 4 mg PO Q8H PRN #20 tabs 03/06/23 tablet Previous Rx's Medication Instructions Recorded inhalational spacing device #1 unit 05/23/17 (Aerochamber Plus Flow-Vu) pen needle, diabetic 31 gauge x #360 ea 09/05/19 1/ amitriptyline 10 mg tablet 10 mg PO QHS #30 tabs 01/11/20 pseudoephedrine HCl 30 mg tablet 30 mg PO Q6H PRN nasal congestion 03/14/20 #15 tabs albuterol sulfate 90 mcg/actuation 2 puff inhalation QID PRN 04/01/20 aerosol inhaler (Ventolin HFA) shortness of breath or wheezing #8.5 grams clonazepam 0.5 mg tablet 0.5 mg PO BID PRN panic attack #15 02/13/21 tab-caps blood sugar diagnostic (Blood #300 strips 10/27/21 Glucose Test strips) blood-glucose meter (Accu-Chek #1 ea 10/27/21 Rody Plus Meter) lancets 28 gauge #300 ea 10/27/21 blood sugar diagnostic (Blood #400 ea 10/29/21 Glucose Test strips) blood-glucose meter #1 ea 10/29/21 lancets 33 gauge (OneTouch Delica #300 ea 10/29/21 Lancets) hydrochlorothiazide 25 mg tablet 25 mg PO QAM #90 tab-caps 03/04/22 metoprolol succinate 200 mg 200 mg PO DAILY #90 tabs 05/06/22 tablet,extended release 24 hr amlodipine 5 mg tablet 5 mg PO DAILY #90 tabs 06/03/22 spironolactone 25 mg tablet 25 mg PO DAILY #90 tabs 06/07/22 (Aldactone) omeprazole 40 mg capsule,delayed 40 mg PO DAILY #90 caps 07/05/22 release Novolog FlexPen U-100 Insulin 100 20 - 25 unit (0.2 - 0.25 mL) 07/22/22 unit/mL (3 mL) subcutaneous subcut AC #15 mL (insulin aspart U-100) metformin 1,000 mg tablet 1,000 mg PO BID #180 tab-caps 11/09/22 empagliflozin 10 mg tablet 10 mg PO DAILY #90 tabs 11/26/22 (Jardiance) rosuvastatin 40 mg tablet (Crestor) 20 mg (1/2 x 40 mg) PO HS #45 01/07/23 tab-caps lisinopril 40 mg tablet 40 mg PO DAILY #90 tabs 01/15/23 semaglutide 2 mg/dose (8 mg/3 mL) 2 mg (0.75 mL) subcut QWEEK #3 mL 01/19/23 subcutaneous pen injector (Ozempic) codeine 10 mg-guaifenesin 100 mg/5 5 ml PO Q6H PRN cough #60 mL 01/20/23 mL oral liquid ketoconazole 2 % topical cream 1 applic topical DAILY 3 months 02/01/23 #60 grams insulin glargine 100 unit/mL (3 84 unit (0.84 mL) subcut DAILY #30 02/09/23 mL) subcutaneous pen (Basaglar mL KwikPen U-100 Insulin) semaglutide 1 mg/dose (4 mg/3 mL) 1 mg (0.75 mL) subcut QWEEK #3 mL 02/21/23 subcutaneous pen injector ondansetron 4 mg disintegrating 4 mg PO Q8H PRN #20 tabs 03/06/23 tablet Allergies Allergy/AdvReac Type Severity Reaction Status Date / Time No Known Allergies Allergy Verified 03/06/23 07:33 General Stated Complaint: Nausea/Vomit/Diar ARLEY: 3 Review of Systems Narrative: see HPI PFSH All Active Problems (Updated 03/06/23 @ 10:24 by Candice Jacob MD) Vomiting (Acute) Tinea pedis (Acute) Peripheral neuropathy (Acute) Type 2 diabetes mellitus with peripheral neuropathy (Acute) Diabetes mellitus with peripheral angiopathy (Acute) Tinnitus, bilateral (Acute) Impacted cerumen, right ear (Acute) Skin lesion (Acute) Neuropathy, diabetic (Acute) Venous insufficiency (Acute) Nail dystrophy (Acute) Erectile dysfunction (Acute) W/ turtling of penis Tendonitis of left rotator cuff (Acute) Bursitis of left shoulder (Acute) Arthritis of left glenohumeral joint (Acute) Arthritis of left acromioclavicular joint (Acute) Screening for colon cancer (Acute) Skin tags, multiple acquired (Acute) Shoulder pain, left (Acute) Face lesion (Acute) Edema (Acute) Hemoptysis, unspecified (Acute) Dental abscess (Acute) Morbid obesity (Acute) BXO (balanitis xerotica obliterans) (Acute) Cough (Acute) Onychomycosis (Acute) Diabetic neuropathy, type II diabetes mellitus (Acute) Dysuria (Acute) BPH w urinary obs/LUTS (Chronic) trial the tamsulosin Myrick's palsy (Acute) History of umbilical hernia repair (Acute) Ventral hernia (Acute 07/16/13) Not currently working due to disabled status (Acute 03/15/13) Type II diabetes mellitus, uncontrolled (Acute) Temporomandibular joint disorder (Acute) Smoker (Acute) Obstructive sleep apnea syndrome (Acute) C-PAP Hyperlipidemia (Acute) Gastroesophageal reflux disease (Acute) Essential hypertension (Chronic 01/24/13) we'll have him back in a week or so for bp recheck Elev transaminase/LDH (Acute 09/26/12) fatty liver on US alcohol abuse Myrick's palsy (Acute) Anxiety (Acute) panic attacks depression Surgical History Repair of umbilical hernia Social History (Reviewed 02/01/23 @ 14:20 by BABS Ayoub Smoking/Tobacco Use Status: Current-Occasional Tobacco Type: cigarettes Tobacco: How many years used: 33 Smoking risk assessment performed?: Yes Alcohol Intake: current Alcohol Intake frequency: a few times a week Drug use: Never Substance use type: does not use Housing: house Current gender identity: male Do you feel safe at home: Yes Do you feel safe in your relationship?: Yes Exam Narrative Exam Narrative: General: Alert, well appearing, well nourished, in no acute distress. Head: Normocephalic, atraumatic Neck: Trachea midline, Neck supple. ENT: MMM. No oropharygeal lesions or exudate. Cardiac: RRR, no murmurs appreciated Resp: No respiratory distress. CTAB. Abd: Soft, non-distended, nontender : No suprapubic tenderness. Extremities: No deformities. No peripheral edema. Neurologic: GCS 15. Moves all extremities freely against gravity Course Vital Signs Vital signs: Vital Signs Temperature 36.8 C 03/06/23 07:25 Pulse 99 H 03/06/23 07:25 Respiratory Rate 20 03/06/23 07:25 Blood Pressure 148/97 H 03/06/23 07:25 Pulse Oximetry 96 03/06/23 07:25 Temperature 36.8 C 03/06/23 07:25 Temperature Source Oral 03/06/23 07:25 Pulse 99 H 03/06/23 07:25 Respiratory Rate 20 03/06/23 07:25 Respiratory Effort Normal 03/06/23 07:30 Blood Pressure 148/97 H 03/06/23 07:25 Blood Pressure Position Sitting 03/06/23 07:25 Pulse Oximetry 96 03/06/23 07:25 Oxygen Delivery Method Room Air 03/06/23 07:25 Oxygen Flow Rate 0 03/06/23 07:25 Pain Level 6 03/06/23 07:25 PAWSS Have you Been Recently Intoxicated or Drunk Within the Last 30 days?: No Have you Ever Experienced Previous Episodes of Alcohol Withdrawal?: No Have you ever Experienced Withdrawal Seizures?: No Have you ever Experienced Delirium Tremens(DT)s?: No Have you ever undergone Alcohol Rehabilitation Treatment (i.e, inpt ot outpatient treatment programs)?: No Have you ever Experienced Blackouts?: No Have you ever Combined Alcohol with other Downers within the last 90 days?: No Have you ever Combined Alcohol with any other Substance of Abuse during the last 90 days?: No Result: 0
[2023-03-06 08:14] LABS: Abs Immature Grans 0.04 10^3/uL (0.0-0.06); Absolute Basophil Count 0.07 10^3/uL (0.0-0.2); Absolute Eosinophil Count 0.16 10^3/uL (0.0-0.7); Absolute Monocyte Count 0.36 10^3/uL (0.1-0.8); Absolute Neutrophil Count 10.37 10^3/uL (1.2-6.7); Basophils % 0.6; Eosinophils % 1.3; HCT 52.8 % (40.0-50.0); HGB 17.5 g/dL (13.5-17.5); Immature Grans % 0.3; Lymphocytes % 11.1; MCH 28.6 pg (27.0-33.0); MCHC 33.1 % (32.0-36.0); MCV 86 fL (80-95); MPV 10.5 fL (8.0-11.0); Monocytes % 2.9; Neutrophils % 83.8; Platelet Count 324 10^3/uL (130-400); RBC 6.11 10^6/uL (4.36-5.78); RDW 14.3 % (11.8-14.1); RDW-SD 45.2 fL; WBC 12.38 10^3/uL (4.4-10.8)
[2023-03-06] MEDS: Normal Saline 1,000 ML 1000 ML IV (08:14)
[2023-03-06] MEDS: Ondansetron 4 MG/2 ML VIAL IVP (08:15)
[2023-03-06 08:19] LABS: Absolute Lymphocyte Count 1.37 10^3/uL (1.2-3.4)
[2023-03-06 08:32] LABS: ALT 31 U/L (16-63); AST 23 U/L (15-37); Alkaline Phosphatase 89 U/L (46-116); Anion Gap 7.5 mmol/L (3-11); BUN 12 mg/dL (7-18); Bilirubin, Total 0.9 mg/dL (0.2-1.0); CO2 29.5 mmol/L (21.0-32.0); CREATININE 1.2 mg/dL (0.70-1.30); Calcium 10.1 mg/dL (8.5-10.1); Chloride 97 mmol/L (98-107); Glucose 176 mg/dL (74-106); Magnesium 1.7 mg/dL (1.8-2.4); Potassium 3.9 mmol/L (3.5-5.1); Sodium 134 mmol/L (136-145); Total Protein 9.1 g/dL (6.4-8.2)
[2023-03-06 08:53] LABS: Diff Comment RBC Morph Reviewed; RBC Morphology Normal
[2023-03-06] MEDS: Simethicone 80 MG CHEW PO (09:36)
[2023-03-06 10:12] VITALS: BP 124/64; PULSE 88; RESP 18; O2SAT 99
[2023-03-06 10:29] VITALS: BP 124/70; PULSE 94; TEMP 36.7; O2SAT 100
== END 2023-03-06 10:30 | disposition home or self-care (01) ==
PROVIDERS: Emergency Provider Student in an Organized Health Care Education/Training Program; PCP Family Medicine
DX: R11.10 Vomiting, unspecified (principal)
CPT/HCPCS: 36415; 80053; 99283; 83735; 85025; J2405

== ENCOUNTER 2023-06-01 16:00 | Outpatient (REF) | payer MEDICARE, MEDICAID, SELFPAY ==
[2023-06-01 21:33] LABS: COMMENT (LAB VIEW ONLY) 107.78 mg/dL; Microalb ug/mg Crea 5.2 ug/mg Cr
== END 2023-06-01 16:01 | disposition home or self-care (01) ==
LOC: LBN 16:00
PROVIDERS: PCP Family Medicine; Visit Provider Family Medicine
DX: E11.9 Type 2 diabetes mellitus without complications (principal)
CPT/HCPCS: 82043; 82570

== ENCOUNTER → 2023-08-31 11:27 | Outpatient (BNVA) | payer MEDICARE, MEDICAID, SELFPAY | PROVIDERS: PCP Family Medicine; Referring Provider Family Medicine; Visit Provider Podiatrist | DX: E11.51 Type 2 diabetes mellitus with diabetic peripheral angiopathy without gangrene (principal); E11.42 Type 2 diabetes mellitus with diabetic polyneuropathy; G62.9 Polyneuropathy, unspecified; E11.40 Type 2 diabetes mellitus with diabetic neuropathy, unspecified; Z79.4 Long term (current) use of insulin; L60.3 Nail dystrophy; I87.2 Venous insufficiency (chronic) (peripheral); B35.3 Tinea pedis; B35.1 Tinea unguium | CPT/HCPCS: 11721 ==

== ENCOUNTER 2023-09-15 09:55 | Outpatient (CLI) | payer MEDICARE, MEDICAID, SELFPAY ==
[2023-09-15 12:32] LABS: Abs Immature Grans 0.03 10^3/uL (0.0-0.06); Absolute Basophil Count 0.08 10^3/uL (0.0-0.2); Absolute Eosinophil Count 0.43 10^3/uL (0.0-0.7); Absolute Lymphocyte Count 2.42 10^3/uL (1.2-3.4); Absolute Monocyte Count 0.59 10^3/uL (0.1-0.8); Absolute Neutrophil Count 4.51 10^3/uL (1.2-6.7); Eosinophils % 5.3 %; HCT 48.8 % (40.0-50.0); HGB 15.5 g/dL (13.5-17.5); Immature Grans % 0.4 %; MCH 27.5 pg (27.0-33.0); MCHC 31.8 % (32.0-36.0); MCV 87 fL (80-95); MPV 11.6 fL (8.0-11.0); Monocytes % 7.3 %; Platelet Count 229 10^3/uL (130-400); RBC 5.64 10^6/uL (4.36-5.78); RDW 14.2 % (11.8-14.1); WBC 8.06 10^3/uL (4.4-10.8)
[2023-09-15 13:06] LABS: ALT 21 U/L (16-63); AST 18 U/L (15-37); Albumin 3.6 g/dL (3.4-5.0); Alkaline Phosphatase 78 U/L (46-116); Anion Gap 4.6 mmol/L (3-11); BUN 13 mg/dL (7-18); Bilirubin, Total 0.7 mg/dL (0.2-1.0); CO2 28.4 mmol/L (21.0-32.0); CREATININE 1.1 mg/dL (0.70-1.30); Calcium 9.1 mg/dL (8.5-10.1); Calculated LDL 91 mg/dL (<100); Chloride 103 mmol/L (98-107); Cholesterol 165 mg/dL (<200); Estimated GFR 82.29 (mL/min/1.73m2); Glucose 140 mg/dL (74-106); HDL Cholesterol 52 mg/dL (40-60); Potassium 3.2 mmol/L (3.5-5.1); Sodium 136 mmol/L (136-145); Total Protein 7.9 g/dL (6.4-8.2); Triglyceride 112 mg/dL (<150)
== END 2023-09-15 09:56 | disposition home or self-care (01) ==
LOC: LOS 09:59
PROVIDERS: PCP Family Medicine; Visit Provider Family Medicine
DX: E78.5 Hyperlipidemia, unspecified (principal); D64.9 Anemia, unspecified; R10.9 Unspecified abdominal pain
CPT/HCPCS: 36415; 80053; 80061; 85025

== ENCOUNTER 2023-10-02 11:16 | Emergency (ER) | payer MEDICARE, MEDICAID, SELFPAY ==
[2023-10-02] VITALS (30 sets, daily range): BP systolic 98–131; BP diastolic 48–73; PULSE 75–107; RESP 10–30; TEMP 36.9; O2SAT 94–100
--- NOTE | 2023-10-02 11:15 | DI.RAD_ITS ---
Exam(s) XR PORTABLE CHEST AP EXAM: XR PORTABLE CHEST AP CLINICAL HISTORY: chest pain. TECHNIQUE: 2D digital imaging was performed. COMPARISON: CT CT THORAX CTA from 10/02/2023 FINDINGS: Single AP portable view. Heart size is upper normal. The mediastinum is not widened. Lungs are clear. No infiltrates nor obvious pleural effusions. IMPRESSION: No acute pulmonary findings on this single AP portable view of the chest. DATA REPOSITORY: RADIATION DOSE DELIVERED:
--- NOTE | 2023-10-02 11:15 | RT.EKG_ITS ---
APPROVED REPORT Exam: Resting ECG Reason for Exam: chest pain Patient Location: E HR:84 bpm ECG Measurements Heart Rate 84 AXIS HI [id number] P [id number] QRSd 148 QRS 14 QT 418 T 6 QTc 494 Conclusion Atrial fibrillation 84 rbbb No stemi
--- NOTE | 2023-10-02 11:30 | DI.CT_ITS ---
Exam(s) CT THORAX CTA EXAM: CT THORAX CTA CLINICAL HISTORY: chest pain. TECHNIQUE: Imaging Protocol: CT angiography of the chest was performed using pulmonary embolus nova col. Multi planar reconstructions were performed. CONTRAST MATERIAL: Intravenous: Omnipaque 350 Contrast volume: 100 cc COMPARISON: CT CT CAROTID NECK CTA from 10/02/2023 FINDINGS: CHEST: THORACIC AORTA: Diameter of the ascending thoracic aorta is within normal limits, measuring 3.2 cm. There is no evidence of aortic dissection. No pericardial effusion. PULMONARY ARTERIES: Contrast is predominately in the aorta; less so in the pulmonary arterial tree. There is, however, no evidence of obvious acute central pulmonary emboli. LUNGS: Mild increased markings noted in the lingular segment of the left lung and in posterior basal segment of the left lower lobe. Small bilateral pleural effusions.. MEDIASTINUM: There is no hilar nor mediastinal adenopathy. Visualized thyroid unremarkable. CARDIAC: Heart size is upper normal. There is no pericardial effusion.Caliber of the thoracic aorta is within normal limits. No dissection. Some moderate coronary artery calcifications noted. Ventric ular ratio is 1:1 PARTIALLY VISUALIZED UPPERMOST ABDOMEN: Cholelithiasis noted. No obvious adrenal masses. OSSEOUS: No significant osseous lesions.. IMPRESSION: 1. No evidence of aortic dissection no pericardial effusion. Normal heart size.. 2. No central pulmonary emboli. Opacification of more distal pulmonary arteries is insufficient for evaluation. 3. Mild increased markings in lingular segment of the left lung and posterior basal segment left lowe r lobe. Cholelithiasis noted. RADIATION DOSE DELIVERED: 811.03mGy.cm Total DLP DATA REPOSITORY: All CT scans at this facility are submitted to the National Radiology Data Registry (NRDR) Dose Index Registry (DIR) with the [employer] ([employer]). RADIATION OPTIMIZATION: All CT scans at this facility use at least one of these dose optimization te chniques: automated exposure control; mA and/or kV adjustment per patient size (includes targeted exa ms where dose is matched to clinical indication); or iterative reconstruction.
--- NOTE | 2023-10-02 11:30 | DI.CT_ITS ---
Exam(s) CT CAROTID NECK CTA EXAM: CT CAROTID NECK CTA CLINICAL HISTORY: chest pain, radiates to neck. TECHNIQUE: Imaging Protocol: Axial CT angiography was performed with multi-slice acquisition and mu lti-planar and/or 3D reconstructions. CONTRAST MATERIAL: Intravenous: Omnipaque 350 Contrast volume:75 mL COMPARISON: No exams were available for comparison FINDINGS: CTA NECK W: AORTIC ARCH ANATOMY: Bovine. Left common carotid artery comes off of the brachiocephalic trunk. Anterior circulation: Both common carotid arteries ascend with normal luminal diameters. There is only mild plaque at the carotid bifurcations and proximal ICAs without significant stenosis. No dissection. Both internal c arotid arteries are patent in the upper neck and skull base-carotid canals. Posterior circulation: Both vertebral arteries originated conventional fashion off of the subclavian arteries and there is n o stenosis of the subclavian arteries proximal to the vertebral artery takeoff points. There is mode rate plaque just distal to the origin of the left vertebral artery. Mild stenosis at this level. No stenosis at the origin of the right vertebral artery. Both vertebral arteries ascend with normal inder jose f diameters in the foramen transverse area with no evidence of intraluminal thrombus nor dissecti on. At the skull base both vertebral arteries contribute to the formation of the basilar artery. IMPRESSION: 1. Mild plaque bilaterally at the carotid bifurcations-proximal ICAs, estimated at less than 20 perc ent bilaterally. 2. Some calcified plaque located just beyond the origin of the left vertebral artery off of the left subclavian artery. No tight stenosis. Also no significant stenosis in the left subclavian artery pr oximal to the vertebral artery takeoff point. Both vertebral arteries are otherwise patent and both vertebral arteries contribute to the formation of the basilar artery at the skull base. 3. Incidentally noted is prominent ossification of the posterior lung to rule element from C through the through C5 and this results in significant spinal canal stenosis. RADIATION DOSE DELIVERED: 384.98mGy.cm Total DLP DATA REPOSITORY: All CT scans at this facility are submitted to the National Radiology Data Registry (NRDR) Dose Index Registry (DIR) with the [employer] (ACR). RADIATION OPTIMIZATION: All CT scans at this facility use at least one of these dose optimization te chniques: automated exposure control; mA and/or kV adjustment per patient size (includes targeted exa ms where dose is matched to clinical indication); or iterative reconstruction.
[2023-10-02 11:37] LABS: Abs Immature Grans 0.05 10^3/uL (0.0-0.06); Absolute Basophil Count 0.08 10^3/uL (0.0-0.2); Absolute Eosinophil Count 0.24 10^3/uL (0.0-0.7); Absolute Lymphocyte Count 1.75 10^3/uL (1.2-3.4); Basophils % 0.6 %; Eosinophils % 1.7 %; HGB 15.7 g/dL (13.5-17.5); Immature Grans % 0.4 %; Lymphocytes % 12.5 %; MCH 26.9 pg (27.0-33.0); MCV 84 fL (80-95); MPV 11.2 fL (8.0-11.0); Neutrophils % 75.8 %; Platelet Count 239 10^3/uL (130-400); RBC 5.83 10^6/uL (4.36-5.78); RDW 14.1 % (11.8-14.1); RDW-SD 42.9 fL; WBC 13.96 10^3/uL (4.4-10.8)
[2023-10-02 11:40] LABS: Absolute Monocyte Count 1.26 10^3/uL (0.1-0.8); Absolute Neutrophil Count 10.58 10^3/uL (1.2-6.7)
[2023-10-02 11:49] LABS: Diff Comment Agrees w/ Instrument; RBC Morphology Normal
[2023-10-02] MEDS: Aspirin 81 MG CHEW 324 MG CH (11:55)
[2023-10-02 12:01] LABS: ALT 26 U/L (16-63); AST 17 U/L (15-37); Albumin 3.7 g/dL (3.4-5.0); Alkaline Phosphatase 87 U/L (46-116); BUN 14 mg/dL (7-18); Bilirubin, Total 0.8 mg/dL (0.2-1.0); CREATININE 1.2 mg/dL (0.70-1.30); Calcium 9.1 mg/dL (8.5-10.1); Chloride 100 mmol/L (98-107); Estimated GFR 74.13 (mL/min/1.73m2); Glucose 149 mg/dL (74-106); Magnesium 1.7 mg/dL (1.8-2.4); NT-proBNP 835 pg/mL (<300); Potassium 3.5 mmol/L (3.5-5.1); Sodium 139 mmol/L (136-145); Total Protein 8.1 g/dL (6.4-8.2); Troponin I < 50 ng/L (< or =60)
[2023-10-02] MEDS: Omnipaque 350 MG/ML 100 ML BTL 75 ML IJ ×2 (12:10→12:20)
[2023-10-02] MEDS: Normal Saline - Diluent 50 ML VIAL IJ (12:12)
--- NOTE | 2023-10-02 12:14 | DI.VRAD_ITS ---
PROCEDURE INFORMATION: Exam: XR Chest Exam date and time: 10/02/2023 11:50 AM Age: 48 years old Clinical indication: Other: Chest pain TECHNIQUE: Imaging protocol: Radiologic exam of the chest. Views: 1 view. COMPARISON: CR XR SHOULDER LT COMPLETE 2+V 08/12/2021 2:08 PM FINDINGS: Lungs: Opacities in the left base may represent atelectasis or pneumonia.. Pleural spaces: Unremarkable. No pleural effusion. No pneumothorax. Heart/Mediastinum: Unremarkable. No cardiomegaly. Bones/joints: Unremarkable. IMPRESSION: Opacities in the left base may represent atelectasis or pneumonia.. Dictated and Authenticated by: Araceli Man MD. Ordering:NATHANAEL Corbin MD
[2023-10-02] MEDS: Omnipaque 350 MG/ML 50 ML BTL IJ (12:20)
[2023-10-02] MEDS: Normal Saline Flush 10 ML SYR IVP (12:21)
--- NOTE | 2023-10-02 12:57 | DI.VRAD_ITS ---
PROCEDURE INFORMATION: Exam: CTA Neck With Contrast Exam date and time: 10/02/2023 12:11 PM Age: 48 years old Clinical indication: Other: Chest pain, radiates to neck TECHNIQUE: Imaging protocol: Computed tomographic angiography of the neck with contrast. Exam focused on the cervical segments of the vasculature. 3D rendering (Not supervised by radiologist): MIP and/or 3D reconstructed images were created by the technologist. Radiation optimization: All CT scans at this facility use at least one of these dose optimization techniques: automated exposure control; mA and/or kV adjustment per patient size (includes targeted exams where dose is matched to clinical indication); or iterative reconstruction. Contrast material: OMNIPAQUE 350; Contrast volume: 75 ml; Contrast route: INTRAVENOUS (IV); COMPARISON: CR XR PORTABLE CHEST AP 10/02/2023 11:50 AM FINDINGS: Right common carotid artery: No stenosis. No dissection or occlusion. Right internal carotid artery: No stenosis of the extracranial segment. No dissection or occlusion. Right external carotid artery: No occlusion or stenosis of the origin. Left common carotid artery: No stenosis. No dissection or occlusion. Left internal carotid artery: No stenosis of the extracranial segment. No dissection or occlusion. Left external carotid artery: No occlusion or stenosis of the origin. Right vertebral artery: No stenosis. No dissection or occlusion. Left vertebral artery: No stenosis. No dissection or occlusion. Paranasal sinuses: Minimal mucosal thickening in the bilateral anterior ethmoidal air cells. Soft tissues: Normal. No significant soft tissue swelling. 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 Mild flowing anterior ossification or anterior spurring noted at C3-C4, C4-C5 , C5-C6 and C6-C7. IMPRESSION: 1. No stenosis or occlusion in the arteries of the neck. No dissection or pseudoaneurysm. 2. 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 REFERENCES: NASCET CRITERIA. The degree of stenosis in the cervical segment of the internal carotid artery is based on NASCET criteria. Normal is no stenosis. Mild is less than 50% stenosis. Moderate is 50-69% stenosis. Severe is 70% to 99% stenosis. Total occlusion is no detectable patent lumen. Dictated and Authenticated by: Brigido Sprague MD. Ordering:NATHANAEL Corbin MD
--- NOTE | 2023-10-02 13:05 | W.ED.GENAD ---
Discharge Plan Disposition Patient Disposition: Home Discharge Details Clinical Impression: Atrial fibrillation, Chest pain Primary Care Provider: Margarito Rashid ED Provider: Elvin iLn Home Meds and New Rx's Prescriptions: New Eliquis 5 mg tablet 5 mg PO BID Qty: 60 0RF Discontinued aspirin [Children's Aspirin] 81 MG tablet,chewable 81 mg PO DAILY No Action (DME) pen needle, diabetic 31 gauge x 1/6 needle 1 ea Miscellaneous TID Qty: 360 3RF Rx Instructions: inject 4 x/day ketoconazole 2 % cream 1 applic topical DAILY 90 Days Qty: 60 3RF albuterol sulfate [Ventolin HFA] 90 mcg/actuation HFA aerosol inhaler 2 puff inhalation QID PRN (Reason: shortness of breath or wheezing) Qty: 8.5 5RF amitriptyline 10 mg tablet 10 mg PO QHS Qty: 30 2RF amlodipine 5 mg tablet 5 mg PO DAILY Qty: 90 3RF omeprazole 40 mg capsule,delayed release(DR/EC) 40 mg PO DAILY Qty: 90 3RF codeine-guaifenesin 10-100 mg/5 mL liquid 5 ml PO Q6H PRN (Reason: cough) Qty: 60 0RF cpap Inhalation clonazepam 0.5 mg tablet 0.5 mg PO BID PRN (Reason: panic attack) Qty: 15 0RF valacyclovir 1 gram tablet 1,000 mg PO ONCE Qty: 1 0RF Rx Instructions: Take 1 hour prior to procedure multivitamin [Daily Vitamin] 1 EACH tablet 1 ea PO DAILY (DME) Aerochamber Plus Flow-Vu 1 EACH spacer 1 ea Miscellaneous PRN Qty: 1 0RF (DME) Blood Glucose Test Strip 1 ea Miscellaneous TID Qty: 300 4RF Rx Instructions: test TID (DME) lancets 28 gauge misc 1 ea Miscellaneous TID Qty: 300 4RF Rx Instructions: test TID (DME) blood-glucose meter [Accu-Chek Rody Plus Meter] Misc See Rx Instructions .ROUTE .MEDSUPPLY Qty: 1 0RF Rx Instructions: As directed (DME) lancets [OneTouch Delica Lancets] 33 gauge misc See Rx Instructions .ROUTE DAILY Qty: 300 4RF Rx Instructions: E11.9 TID (DME) blood-glucose meter Mis See Rx Instructions .ROUTE .MEDSUPPLY Qty: 1 0RF Rx Instructions: E11.9 verio meter (DME) Blood Glucose Test Strip See Rx Instructions .ROUTE .MEDSUPPLY Qty: 400 5RF Rx Instructions: AC and HS E11.9 on insulin; one touch verio test strip insulin aspart U-100 [Novolog FlexPen U-100 Insulin] 100 unit/mL (3 mL) insulin pen 20 - 25 unit subcut AC MDD 75 units/day Qty: 15 4RF Rx Instructions: E11.9 Jardiance 10 mg tablet 10 mg PO DAILY Qty: 90 3RF rosuvastatin [Crestor] 40 mg tablet 20 mg PO HS Qty: 45 4RF lisinopril 40 mg tablet 40 mg PO DAILY Qty: 90 3RF hydrochlorothiazide 25 mg tablet 25 mg PO QAM Qty: 90 4RF spironolactone [Aldactone] 25 mg tablet 25 mg PO DAILY Qty: 90 3RF metoprolol succinate 200 mg tablet extended release 24 hr 200 mg PO DAILY Qty: 90 3RF tirzepatide 5 mg/0.5 mL pen injector 5 mg subcut QWEEK 28 Days Qty: 2 0RF ondansetron 4 mg tablet,disintegrating 4 mg PO Q8H PRNQty: 20 0RF Discharge Instructions Instructions: A-fib (Atrial Fibrillation) (ED) Additional Instructions: Please stop your daily aspirin and start taking Eliquis. Your first dose was given in the emergency department, and the prescription was sent to the pharmacy. You should take this medication twice daily. It will help prevent blood counts and stroke from developing due to the A-fib. Please monitor your symptoms and return with any concerns If your heart rate is sustained above 100, you may need evaluation in the emergency department. Your metoprolol dose will help keep your heart rate under control. You need to follow-up The need to follow-up with your PCP this week for reevaluation, vital sign recheck and referral for outpatient echocardiogram. HPI General Date/Time Provider Initiated Documentation: 10/02/23 11:18. Limitations to Documentation: no limitations. Information obtained by: patient. HPI Narrative: 48-year-old gentleman with past medical history of diabetes, hypertension, obesity, tobacco use disorder presents for evaluation of chest pain. He reports that this morning when he woke up he noticed that he was having pain in his upper chest radiating to his back and neck. The pain only occurred while taking a deep breath. It did not occur with rest. He says when he sits still he feels fine. Denies any trauma. Denies any diaphoresis, feeling short of breath, nausea or vomiting. Has never had pain like this before. Related Data Home Medications Medication Instructions Recorded Confirmed multivitamin (Daily Vitamin tablet) 1 ea PO DAILY 06/04/13 10/02/23 inhalational spacing device #1 unit 05/23/17 10/02/23 (Aerochamber Plus Flow-Vu) cpap inhalation 10/11/18 09/15/23 pen needle, diabetic 31 gauge x #360 ea 09/05/19 10/02/2304/30 clonazepam 0.5 mg tablet 0.5 mg PO BID PRN panic attack #15 02/13/21 10/02/23 tab-caps blood sugar diagnostic (Blood #300 strips 10/27/21 10/02/23 Glucose Test strips) blood-glucose meter (Accu-Chek #1 ea 10/27/21 10/02/23 Rody Plus Meter) lancets 28 gauge #300 ea 10/27/21 10/02/23 blood sugar diagnostic (Blood #400 ea 10/29/21 10/02/23 Glucose Test strips) blood-glucose meter #1 ea 10/29/21 10/02/23 lancets 33 gauge (OneTouch Delica #300 ea 10/29/21 10/02/23 Lancets) Novolog FlexPen U-100 Insulin 100 20 - 25 unit (0.2 - 0.25 mL) 07/22/22 10/02/23 unit/mL (3 mL) subcutaneous subcut AC #15 mL (insulin aspart U-100) empagliflozin 10 mg tablet 10 mg PO DAILY #90 tabs 11/26/22 10/02/23 (Jardiance) rosuvastatin 40 mg tablet (Crestor) 20 mg (1/2 x 40 mg) PO HS #45 01/07/23 10/02/23 tab-caps lisinopril 40 mg tablet 40 mg PO DAILY #90 tabs 01/15/23 10/02/23 ketoconazole 2 % topical cream 1 applic topical DAILY 3 months 02/01/23 10/02/23 #60 grams ondansetron 4 mg disintegrating 4 mg PO Q8H PRN #20 tabs 03/06/23 10/02/23 tablet hydrochlorothiazide 25 mg tablet 25 mg PO QAM #90 tab-caps 03/23/23 10/02/23 spironolactone 25 mg tablet 25 mg PO DAILY #90 tabs 05/23/23 10/02/23 (Aldactone) metoprolol succinate 200 mg 200 mg PO DAILY #90 tabs 05/26/23 10/02/23 tablet,extended release 24 hr albuterol sulfate 90 mcg/actuation 2 puff inhalation QID PRN 06/01/23 10/02/23 aerosol inhaler (Ventolin HFA) shortness of breath or wheezing #8.5 grams amitriptyline 10 mg tablet 10 mg PO QHS #30 tabs 06/01/23 10/02/23 amlodipine 5 mg tablet 5 mg PO DAILY #90 tabs 06/01/23 10/02/23 codeine 10 mg-guaifenesin 100 mg/5 5 ml PO Q6H PRN cough #60 mL 06/01/23 10/02/23 mL oral liquid omeprazole 40 mg capsule,delayed 40 mg PO DAILY #90 caps 06/01/23 10/02/23 release valacyclovir 1 gram tablet 1,000 mg PO ONCE #1 tab 08/02/23 10/02/23 tirzepatide 5 mg/0.5 mL 5 mg (0.5 mL) subcut QWEEK 4 weeks 09/21/23 10/02/23 subcutaneous pen injector #2 mL apixaban 5 mg tablet (Eliquis) 5 mg PO BID #60 tabs 10/02/23 Previous Rx's Medication Instructions Recorded inhalational spacing device #1 unit 05/23/17 (Aerochamber Plus Flow-Vu) pen needle, diabetic 31 gauge x #360 ea 09/05/19/ clonazepam 0.5 mg tablet 0.5 mg PO BID PRN panic attack #15 02/13/21 tab-caps blood sugar diagnostic (Blood #300 strips 10/27/21 Glucose Test strips) blood-glucose meter (Accu-Chek #1 ea 10/27/21 Rody Plus Meter) lancets 28 gauge #300 ea 10/27/21 blood sugar diagnostic (Blood #400 ea 10/29/21 Glucose Test strips) blood-glucose meter #1 ea 10/29/21 lancets 33 gauge (OneTouch Delica #300 ea 10/29/21 Lancets) Novolog FlexPen U-100 Insulin 100 20 - 25 unit (0.2 - 0.25 mL) 07/22/22 unit/mL (3 mL) subcutaneous subcut AC #15 mL (insulin aspart U-100) empagliflozin 10 mg tablet 10 mg PO DAILY #90 tabs 11/26/22 (Jardiance) rosuvastatin 40 mg tablet (Crestor) 20 mg (1/2 x 40 mg) PO HS #45 01/07/23 tab-caps lisinopril 40 mg tablet 40 mg PO DAILY #90 tabs 01/15/23 ketoconazole 2 % topical cream 1 applic topical DAILY 3 months 02/01/23 #60 grams ondansetron 4 mg disintegrating 4 mg PO Q8H PRN #20 tabs 03/06/23 tablet hydrochlorothiazide 25 mg tablet 25 mg PO QAM #90 tab-caps 03/23/23 spironolactone 25 mg tablet 25 mg PO DAILY #90 tabs 05/23/23 (Aldactone) metoprolol succinate 200 mg 200 mg PO DAILY #90 tabs 05/26/23 tablet,extended release 24 hr albuterol sulfate 90 mcg/actuation 2 puff inhalation QID PRN 06/01/23 aerosol inhaler (Ventolin HFA) shortness of breath or wheezing #8.5 grams amitriptyline 10 mg tablet 10 mg PO QHS #30 tabs 06/01/23 amlodipine 5 mg tablet 5 mg PO DAILY #90 tabs 06/01/23 codeine 10 mg-guaifenesin 100 mg/5 5 ml PO Q6H PRN cough #60 mL 06/01/23 mL oral liquid omeprazole 40 mg capsule,delayed 40 mg PO DAILY #90 caps 06/01/23 release valacyclovir 1 gram tablet 1,000 mg PO ONCE #1 tab 08/02/23 tirzepatide 5 mg/0.5 mL 5 mg (0.5 mL) subcut QWEEK 4 weeks 09/21/23 subcutaneous pen injector #2 mL apixaban 5 mg tablet (Eliquis) 5 mg PO BID #60 tabs 10/02/23 Allergies Allergy/AdvReac Type Severity Reaction Status Date / Time No Known Allergies Allergy Verified 10/02/23 11:28 General Stated Complaint: Chest Pain ARLEY: 2 Exam Narrative Exam Narrative: Review of Systems: All systems reviewed & are unremarkable except as noted in HPI and below Obese, no acute distress NCAT PERRL, normal conjunctiva RRR no murmur, no chest wall tenderness Unlabored respiratory diminished air movement bilaterally the, limited by body habitus Nondistended abdomen soft nontender Extremities w/o deformity, no cyanosis, no edema No rashes or lesions. no focal neurologic deficits Appropriate mood and affect Course Vital Signs Vital signs: Vital Signs Temperature 36.9 C 10/02/23 11:19 Pulse 101 H 10/02/23 11:19 Respiratory Rate 26 H 10/02/23 11:19 Blood Pressure 127/48 L 10/02/23 11:19 Pulse Oximetry 98 10/02/23 11:19 Temperature 36.9 C 10/02/23 11:19 Temperature Source Temporal Artery Scan 10/02/23 11:19 Pulse 78 10/02/23 12:01 Pulse 91 H 10/02/23 12:50 Respiratory Rate 19 10/02/23 12:50 Respiratory Effort Normal, Non-Labored 10/02/23 11:26 Blood Pressure 131/58 L 10/02/23 12:01 Blood Pressure Mean 80 10/02/23 12:01 Blood Pressure Position Supine 10/02/23 11:19 Pulse Oximetry 97 10/02/23 12:50 Oxygen Delivery Method Room Air 10/02/23 11:19 Oxygen Flow Rate 0 10/02/23 11:19 Pain Level 5 10/02/23 11:19 Lab/Test Results Lab/Test Results: Laboratory Tests Range/Units 10/02/23 11:25 WBC (4.4-10.8) 10^3/uL 13.96 H RBC (4.36-5.78) 10^6/uL 5.83 H Hgb (13.5-17.5) g/dL 15.7 Hct (40.0-50.0) % 49.0 MCV (80-95) fL 84 MCH (27.0-33.0) pg 26.9 L MCHC (32.0-36.0) % 32.0 RDW (11.8-14.1) % 14.1 Plt Count (130-400) 10^3/uL 239 MPV (8.0-11.0) fL 11.2 H Immature Gran % % 0.4 Neutrophils % % 75.8 Lymphocytes % % 12.5 Monocytes % % 9.0 Eosinophils % % 1.7 Basophils % % 0.6 Nucleated RBC % (0.0-0.3) % 0.0 Absolute Neutrophils (1.2-6.7) 10^3/uL 10.58 H Absolute Lymphocytes (1.2-3.4) 10^3/uL 1.75 Absolute Monocytes (0.1-0.8) 10^3/uL 1.26 H Absolute Eosinophils (0.0-0.7) 10^3/uL 0.24 Absolute Basophils (0.0-0.2) 10^3/uL 0.08 RBC Morphology Normal Sodium (136-145) mmol/L 139 Potassium (3.5-5.1) mmol/L 3.5 Chloride (98-107) mmol/L 100 Carbon Dioxide (21.0-32.0) mmol/L 31.0 Anion Gap (3-11) mmol/L 8.0 BUN (7-18) mg/dL 14 Creatinine (0.70-1.30) mg/dL 1.2 Est GFR (CKD-EPI 2020) (mL/min/1.73m2) 74.13 Glucose (74-106) mg/dL 149 H Calcium (8.5-10.1) mg/dL 9.1 Magnesium (1.8-2.4) mg/dL 1.7 L Total Bilirubin (0.2-1.0) mg/dL 0.8 AST (15-37) U/L 17 ALT (16-63) U/L 26 Alkaline Phosphatase (46-116) U/L 87 Troponin I (< or =60) ng/L < 50 NT-Pro-B Natriuret Pep (<300) pg/mL 835 H Total Protein (6.4-8.2) g/dL 8.1 Albumin (3.4-5.0) g/dL 3.7 Medical Decision Making Emergent evaluation of chest pain. Initial differential includes ACS, musculoskeletal pain. Given the radiation into the neck and back, also consider dissection. The patient has normal vital signs. EKG is not acutely ischemic but does demonstrate A fib, will review chart to find out if this is new dysrhtymia.. Aspirin has been given his multiple risk factors for coronary disease. Plan for labs, cardiac monitoring and imaging to evaluate for dissection or other intrathoracic process Lab work reviewed. Slight leukocytosis noted. No anemia. Magnesium below normal range but only 1.7. BNP is elevated 835. Has not had prior BMP and he has not had an echocardiogram. His initial troponin is negative. I reviewed his chest x-ray and noted minimal cardiomegaly. This could be new onset heart failure contributing to his symptoms. He is not hypoxic or having any increased work of breathing. So there is no indication for hospitalization or emergent diuresis. CT imaging is unremarkable for any dissection, pulmonary embolism or other process. He does not have signs of cardiomegaly or pericardial effusion on CT. The patient reports persistent pain only with a deep breath. Will give a dose of bronchodilator given his smoking history, this could be bronchospasm and reassess. Second troponin pending. patient feels much better after belching. remains in rate controlled a fib. this is a new diagnosis. discussed with hospitalist regarding need for inpatient v out patient treatment. we agree patient is candidate for outpatient. CHADsVASC is 2. will start anticoag with eliquis. first dose given in ED. 2nd trop negative. patient symptom free. discussed new diagnosis of Afib, stopping ASA and starting eliquis. needs close follow up with PCP for outpatient echo and monitoring. RTER guidance provided. discharged in good condition. Medical Records Medical records reviewed: Yes I reviewed the patient's medical records. Lab Data Lab results reviewed: Yes I reviewed the patient's lab results. Quality:SDOH Health Related Social Needs: No Data to Display [facility] All Active Problems (Updated 10/02/23 @ 15:11 by Elvin Lin MD) Chest pain (Acute) Atrial fibrillation (Chronic) Left-sided sensorineural hearing loss (Acute) Excessive cerumen in both ear canals (Acute) Tinea pedis (Acute) Peripheral neuropathy (Acute) Type 2 diabetes mellitus with peripheral neuropathy (Acute) Diabetes mellitus with peripheral angiopathy (Acute) Tinnitus, bilateral (Acute) Impacted cerumen, right ear (Acute) Skin lesion (Acute) Neuropathy, diabetic (Acute) Venous insufficiency (Acute) Nail dystrophy (Acute) Erectile dysfunction (Acute) W/ turtling of penis Tendonitis of left rotator cuff (Acute) Bursitis of left shoulder (Acute) Arthritis of left glenohumeral joint (Acute) Arthritis of left acromioclavicular joint (Acute) Screening for colon cancer (Acute) Skin tags, multiple acquired (Acute) Shoulder pain, left (Acute) Face lesion (Acute) Edema (Acute) Hemoptysis, unspecified (Acute) Dental abscess (Acute) Morbid obesity (Acute) BXO (balanitis xerotica obliterans) (Acute) Cough (Acute) Onychomycosis (Acute) Diabetic neuropathy, type II diabetes mellitus (Acute) Dysuria (Acute) BPH w urinary obs/LUTS (Chronic) trial the tamsulosin Myrick's palsy (Acute) History of umbilical hernia repair (Acute) Ventral hernia (Acute 07/16/13) Not currently working due to disabled status (Acute 03/15/13) Type II diabetes mellitus, uncontrolled (Acute) Temporomandibular joint disorder (Acute) Smoker (Acute) Obstructive sleep apnea syndrome (Acute) C-PAP Hyperlipidemia (Acute) Gastroesophageal reflux disease (Acute) Essential hypertension (Chronic 01/24/13) we'll have him back in a week or so for bp recheck Elev transaminase/LDH (Acute 09/26/12) fatty liver on US alcohol abuse Myrick's palsy (Acute) Anxiety (Acute) panic attacks depression Surgical History Repair of umbilical hernia Social History Smoking/Tobacco Use Status: Current-Occasional Tobacco Type: cigarettes and e-cigarettes Tobacco: How many years used: 33 Quit status: has quit before Second Hand Exposure: Yes Smoking risk assessment performed?: Yes Alcohol Intake: current Alcohol Intake frequency: a few times a month Alcohol type: hard liquor Drug use: Never Substance use type: does not use Housing: house Current gender identity: male What type of physical activity do you participate in: other Details: bowling 2x week Duration: 60-90 minutes/day Frequency: 1-2 times per week Special ti needs: No Seatbelt use: sometimes Helmet use: No Drive intox or ride w/intox driver's education instructor: No Do you feel safe at home: Yes Do you feel safe in your relationship?: Yes PAWSS Have you Been Recently Intoxicated or Drunk Within the Last 30 days?: No Have you Ever Experienced Previous Episodes of Alcohol Withdrawal?: No Have you ever Experienced Withdrawal Seizures?: No Have you ever Experienced Delirium Tremens(DT)s?: No Have you ever undergone Alcohol Rehabilitation Treatment (i.e, inpt ot outpatient treatment programs)?: No Have you ever Experienced Blackouts?: No Have you ever Combined Alcohol with other Downers within the last 90 days?: No Have you ever Combined Alcohol with any other Substance of Abuse during the last 90 days?: No Positive Blood Alcohol level on Presentation? [PCS.BAL]: No Evidence of Increased Autonomic Activity (i.e. HR>120, tremor, sweating, agitation, nausea)?: No Result: 0
--- NOTE | 2023-10-02 13:15 | DI.VRAD_ITS ---
PROCEDURE INFORMATION: Exam: CTA Chest With Contrast Exam date and time: 10/02/2023 12:41 PM Age: 48 years old Clinical indication: Other: Chest pain TECHNIQUE: Imaging protocol: Computed tomographic angiography of the chest with contrast. Exam focused on the arteries. 3D rendering (Not supervised by radiologist): MIP and/or 3D reconstructed images were created by the technologist. Radiation optimization: All CT scans at this facility use at least one of these dose optimization techniques: automated exposure control; mA and/or kV adjustment per patient size (includes targeted exams where dose is matched to clinical indication); or iterative reconstruction. Contrast material: OMNIPAQUE 350; Contrast volume: 75 ml; Contrast route: INTRAVENOUS (IV); COMPARISON: CR XR PORTABLE CHEST AP 10/02/2023 11:50 AM FINDINGS: Pulmonary arteries: No evidence of pulmonary embolus to the segmental level. Aorta: No aneurysm of the aorta. No dissection of the aorta. Lungs: Unremarkable. No consolidation. No masses. Pleural spaces: Unremarkable. No pneumothorax. No pleural effusion. Heart: Unremarkable. No cardiomegaly. No pericardial effusion. Coronary arteries: Coronary artery calcifications may indicate coronary artery disease. Lymph nodes: Pathologic node adjacent to the bronchus intermedius 17 x 12 mm Liver: Lobulated liver consistent with cirrhosis Gallbladder and bile ducts: Gallstones in the gallbladder. Bones/joints: Unremarkable. No acute fracture. Soft tissues: Unremarkable. IMPRESSION: 1. No evidence of pulmonary embolus to the segmental level. 2. No aneurysm of the aorta. 3. No dissection of the aorta. 4. Gallstones in the gallbladder. Dictated and Authenticated by: Araceli Man MD. Ordering:NATHANAEL Corbin MD
--- NOTE | 2023-10-02 13:45 | RT.EKG_ITS ---
APPROVED REPORT Exam: Resting ECG Reason for Exam: chest pain Patient Location: E HR:83 bpm ECG Measurements Heart Rate 83 AXIS [place] [id number] P [id number] QRSd 149 QRS 5 QT 422 T 6 QTc 496 Conclusion Atrial fibrillation 83 RBBB no stemi
[2023-10-02] MEDS: Famotidine 20 MG/2 ML VIAL IVP (13:57)
[2023-10-02] MEDS: Albuterol/Ipratropium 3 ML UPD VIAL UPD (13:57)
[2023-10-02] MEDS: Apixaban 5 MG TAB PO (14:46)
[2023-10-02 15:03] LABS: Troponin I < 50 ng/L (< or =60)
== END 2023-10-02 15:19 | disposition home or self-care (01) ==
PROVIDERS: Emergency Provider Emergency Medicine; PCP Family Medicine
DX: R07.9 Chest pain, unspecified (principal); I48.91 Unspecified atrial fibrillation; E11.40 Type 2 diabetes mellitus with diabetic neuropathy, unspecified; I10 Essential (primary) hypertension; I45.19 Other right bundle-branch block; F17.210 Nicotine dependence, cigarettes, uncomplicated; F17.290 Nicotine dependence, other tobacco product, uncomplicated; Z79.84 Long term (current) use of oral hypoglycemic drugs; Z79.4 Long term (current) use of insulin
CPT/HCPCS: 36415; 70498; 71275; 80053; 93005; 94640; 99285; 71045; 83735; 83880; 84484; 85025; 93010; 99284; J3490; J7620; Q9967

== ENCOUNTER 2023-10-05 07:51 | Outpatient (CLI) | payer MEDICARE, MEDICAID, SELFPAY ==
--- NOTE | 2023-10-05 07:45 | RT.EKG_ITS ---
APPROVED REPORT Exam: Resting ECG Reason for Exam: ED discharge Patient Location: O HR:82 bpm ECG Measurements Heart Rate 82 AXIS [place] [id number] P [id number] QRSd 150 QRS 12 QT 408 T -16 QTc 477 Conclusion Atrial fibrillation...V-rate 71- 91, irreg A-activity Right bundle branch block...QRSd>120, terminal axis(90,270)
== END 2023-10-05 07:52 | disposition home or self-care (01) ==
LOC: DI.CM 07:51
PROVIDERS: PCP Family Medicine; Visit Provider Family Medicine
DX: I48.91 Unspecified atrial fibrillation (principal)
CPT/HCPCS: 93010

== ENCOUNTER 2023-11-14 08:30 | Outpatient (CLI) | payer MEDICARE, MEDICAID, SELFPAY | END 2023-11-14 08:31 | disposition home or self-care (01) | LOC: DI.CARD 08:31 | PROVIDERS: PCP Family Medicine; Visit Provider Internal Medicine Cardiovascular Disease | CPT/HCPCS: 93010 ==

== ENCOUNTER 2024-01-14 21:19 | Emergency (ER) | payer MEDICARE, MEDICAID, SELFPAY ==
[2024-01-14 21:22] VITALS: BP 137/62; PULSE 93; RESP 16; TEMP 37.3
--- OUTSIDE RECORDS SUMMARY | 2024-01-14 21:45 | XMS_ITS | Referral Summary ---
Author Organization [facility] Address [address] [place] [address] Care Team Providers Care Gang Boss Name Role Phone Sheree Feliciano Primary Care Provider Unavailab le Social History Tobacco Use Types Packs/Day Years Used Date Smoking Tobacco: Never Assessed Sex and Gender Information Value Date Recorded Sex Assigned at Not on file Gender Identity Not on file Sexual Orientation Not on file Plan of Treatment Not on file Care Teams Gang Boss Relationship Specialty Start Date End Date Sheree Feliciano PA PCP - General 03/18/14
--- OUTSIDE RECORDS SUMMARY | 2024-01-14 21:45 | XMS_ITS | Encounter Summary ---
Author Organization Formerly [facility] Address [facility] [address] Care Team Providers Care Charrer Name Role Phone Margarito Rashid MD Primary Care Provider [phone] Reason for Referral * Consultation (Routine) - Closed Specialty Diagnoses / Procedures Referred By Jane maya Referred To Contact Urology Diagnoses Erectile dysfunction, unspecified erectile dysfunction type ED Margarito Rashid MD [email or web address] [place] [address] Esteban Basilio MD [facility] [place] [address] Referral ID Status Reason Start Date Expiration Date V isits Requested Visits Authorized [id number] Closed Consult, Test & Treat PCP Updated and/or Approved 08/20/2022 08/20/2023 6 6 Encounter Details Date Type Department Care Team (Late Contact Info) Description 08/20/2022 Transcribe Orders eDH Incoming Referrals [phone] Margarito Rashid MD [email or web address] [place] [address] Erectile dysfunction, unspecified erectile dysfunction type Social History Tobacco Use Types Packs/Day Years Used Date Smoking Tobacco: Never Assessed Sex and Gender Information Value Date Recorded Sex Assigned at Not on file Gender Identity Not on file Sexual Orientation Not on file documented as of this encounter Plan of Treatment Upcoming Encounters Date Type Department Care Team (Late st Contact Info) Description 02/13/2024 2:15 PM EDT Office [place] [address] Jacek Perdomo MD [facility] [place] [address] Scheduled Referrals Name Type Priority Associated Diagnoses Orde r Schedule Referral to Urology Outpatient Referral Routine Erectile Dysfunction, Unspecified Erectile Dysfunction Type Ordered: 08/20/2022 documented as of this encounter Visit Diagnoses Diagnosis Erectile dysfunction, unspecified erectile dysfunction type documented in this encounter Care Teams Charrer Relationship Specialty Start Date End Date Margarito Rashid MD [address] [facility] [address] [place] [address] PCP - General Family Medicine 09/20/21 documented as of this encounter
--- OUTSIDE RECORDS SUMMARY | 2024-01-14 21:45 | XMS_ITS | Clinical Summary ---
Author Organization [facility] Address [address] [place] [address] Care Team Providers Care Bi Tester Name Role Phone Sheree Feliciano Primary Care Provider Unavailab le Social History Tobacco Use Types Packs/Day Years Used Date Smoking Tobacco: Never Assessed Sex and Gender Information Value Date Recorded Sex Assigned at Not on file Gender Identity Not on file Sexual Orientation Not on file Plan of Treatment Health Maintenance Due Date Last Done Comments Hepatitis C Screen 1974 Hepatitis B Vaccine (1 of 3 - 19+ 3-dose series) 04/15 COVID-19 Vaccine ( - 2022- season) 2022 Care Teams Bi Tester Relationship Specialty Start Date End Date Sheree Feliciano PA PCP - General 03/18/14
--- OUTSIDE RECORDS SUMMARY | 2024-01-14 21:45 | XMS_ITS | Encounter Summary ---
[facility] [place] [address] Care Team Providers Care Customs Investigator Name Role Phone Margarito Rashid MD Primary Care Provider [phone] Encounter Details Date Type Department Care Team (Latest Contact Info) Description 11/26/2022 Travel Social History Tobacco Use Types Packs/Day Years [...] PM EDT Office [place] [address] Jacek Perdomo MD [facility] [place] [address] documented as of this encounter Visit Diagnoses Not on filedocumented in this encounter Care Teams Customs Investigator Relationship Specialty Start Date End Date Margarito Rashid MD [address] [place] [address] PCP - General Family Medicine 09/20/21 documented as of this encounter
--- OUTSIDE RECORDS SUMMARY | 2024-01-14 21:45 | XMS_ITS | Encounter Summary ---
Author Organization [facility] [place] [address] Care Team Providers Care Inspector And Clerk Name Role Phone Margarito Rashid MD Primary Care Provider [phone] Reason for Referral * Consultation (Routine) - Closed Specialty Diagnoses / Procedures Referred By Contac t Referred To Contact Plastic Surgery Diagnoses Lichen sclerosus of penis Acquired buried penis BXO Esteban Basilio MD [facility] [place] [address] Jacek Perdomo MD [facility] [place] [address] Referral ID Status Reason Start Date Expiration Date V isits Requested Visits Authorized [id number] Closed Consult, Test & Treat 11/26/2022 11/26/2023 1 1 Reason for Visit * Reason Comments Erectile Dysfunction * Consultation (Routine) - Closed Specialty Diagnoses / Procedures Referred By Contac t Referred To Contact Urology Diagnoses Erectile dysfunction, unspecified erectile dysfunction type ED Margarito Rashid MD [address] [place] [address] [address] [facility] 1 [place] [address] Esteban Basilio MD [facility] [place] [address] Referral ID Status Reason Start Date Expiration Date V isits Requested Visits Authorized [id number] Closed Consult, Test & Treat PCP Updated and/or Approved 08/20/2022 08/20/2023 6 6 Encounter Details Date Type Department Care Team (Late st Contact Info) Description 11/26/2022 1:00 PM EDT Office Visit Urology at [facility] [address] [place] [phone] Esteban Basilio MD [facility] [place] [address] Lichen sclerosus of penis; Acquired buried penis Social History Tobacco Use Types Packs/Day Years Used Date Smoking Tobacco: Never Assessed Sex and Gender Information Value Date Recorded Sex Assigned at Not on file Gender Identity Not on file Sexual Orientation Not on file documented as of this encounter Last Filed Vital Signs Vital Sign Reading Time Taken Comments Blood Pressure 139/84 11/26/2022 1:10 PM EDT Pulse 78 11/26/2022 1:10 PM EDT Temperature 36.5 ??C (97.7 ??F) 11/26/2022 1:10 PM ED T Respiratory Rate 18 11/26/2022 1:10 PM EDT Oxygen Saturation 96% 11/26/2022 1:10 PM EDT Inhaled Oxygen Concentration - - Weight - - Height - - Body Mass Index - - documented in this encounter Progress Notes * Esteban Basilio MD - 11/26/2022 1:00 PM EDT S: I have been requested by Dr. Pimentel to see Mr. Andrade for my opinion regarding his penis. He is a very pleasant 47-year-old gentleman with a history of difficulty with his penile skin and retraction of his penile shaft for the last 16 months. His penile skin is obscuring his penis and he is not able to retract this skin back to expose his glans. He finds retraction his penile skin to be painful and is thus avoiding erection with sexual activity. He had circumcision. He has had recurrent infections of his penile skin, with one infection about two years ago requiring oral antibiotics. He denies any other issues, including gross hematuria, dysuria, and urethral discharge. Other issues are denied. Past medical history is notable for DM (last A1c 7.2 per his report), hypertension, hyperlipidemia,obesity, GERD. Past surgical history is notable for umbilical hernia repair. From a social perspective, he smokes 1 PPD and has a 31 year history of smoking. Alcohol usage is 4-[address] drug usage is denied. He is . He is on disabilty. Family history is negative for any genitourinary cancers. He has no known drug allergies. His medications were reviewed and are consistent with those in the electronic medical record. A review of systems was performed and he has no pertinent positives, except for those listed in thehistory of present illness. O: On physical exam today he is in general a healthy, well-appearing man. He is awake, alert and oriented to person place and time. Mood and affect are normal. Gait: Normal and neurologically intact. No focal motor or sensory deficits are noted. Skin: Skin is warm and dry. There are no visible scars, rashes or lesions. HEENT: He is normocephalic and atraumatic. There is no scleral icterus. Pupils are equally round and reactive to light and accommodation. Extraocular motions intact. Trachea is midline. Lungs: No audible wheezing, normal respiratory effort. Chest rise is symmetric. Extremities: Extremities do not demonstrate clubbing, cyanosis or edema. His abdomen is soft, nontender, nondistended. There is no abdominal tenderness, guarding or rebound. No abdominal or inguinal hernias are seen. He has a large suprapubic fat pad obscuring his penis. His penile shaft skin is phimotic and unretractable and concerning for lichen sclerosus. There are no penile lesions or palpable plaques. Glans and meatus are not visualized due to phimotic penile skin. Both testes are scrotally located. The bilateral cords are palpable and within normal limits. There are no testicular masses or nodules bilaterally. His scrotum is without edema or erythema. A digital rectal exam was deferred. A: This is a 47-year-old gentleman with penile skin changes concerning for lichen sclerosus. He also has acquired buried penis a large suprapubic fat pad. P: We discussed these issues at length. I explained the etiology and natural history of lichen sclerosus in detail. I also explained the insidious nature of this condition and the high likelihood of recurrence. We discussed management options for lichen sclerosus, including continued observation, topical steroids (which are very unlikely to be helpful at this point), resection of penile skin without grafting (which would leave him with a drastically foreshortened penis), and resection of penileskin with skin grafting by plastic surgery. I explained that section of penile skin with skin grafting by plastic surgery is the most likely option to be effective for the long-term, particularly if his suprapubic fat pad is also removed. We discussed the challenges of the surgery, and the importance of safe postoperative recovery. I furtherexplained that his current diabetes control and smoking make preoperative and postoperative complications more likely and I encouraged him to quit smoking and improve his diabetes control. I will refer him to Dr. Perdomo for further consideration of suprapubic fat pad excision as well as penile degloving and penile skin grafting. I advised him that Dr. Perdomo may request that he make significant changes to his health prior to surgery, including quitting smoking and improving his diabetes control. He expressed understanding of this plan, and all questions were answered to his satisfaction. I will keep you updated as we move forward. Thank you very much for this kind referral. Please do not hesitate to contact me if you have any questions. 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
--- OUTSIDE RECORDS SUMMARY | 2024-01-14 21:45 | XMS_ITS | Encounter Summary ---
Author Organization [facility] Address [address] [place] [address] Care Team Providers Care Stitch Bonding Machine Operator Name Role Phone Sheree Feliciano Primary Care Provider Unavailab le Encounter Details Date Type Department Care Team (Late st Contact Info) Description 10/30/2020 Lab Requisition [facility] Pathology & Laboratory Medicine - [facility] [address] [place], [place] [address] Outr Resulting Lab, Provider Social History Tobacco Use Types Packs/Day Years Used Date Smoking Tobacco: Never Assessed Sex and Gender Information Value Date Recorded Sex Assigned at Not on file Gender Identity Not on file Sexual Orientation Not on file documented as of this encounter Plan of Treatment Not on file documented as of this encounter Procedures Procedure Name Priority Date/Time Associated Diagnosis Comments ZZCOVID-19 TEST [facility] PCR Today 10/29/2020 12:00 EDT COVID-19 TESTING Routine 10/29/2020 12:0 0 EDT documented in this encounter Results * COVID-19 TEST [facility] PCR (10/29/2020 12:00 EDT) Swab ENTIRE NASOPHARYNX / Unknown 10/29/2020 12:00 EDT 10/30/2020 15:38 EDT Provider Outr Resulting Lab MICROBIOLOGY - GENERAL ORDERABLES [facility] [address] [place] [address] * COVID-19 TESTING (10/29/2020 12:00 EDT) COVID-19 rt-PCR Result Negative Negative 10/31/2020 11:43 EDT [facility] Comment: This test has not been FDA cleared or approved. This test has been authorized by FDA under an EUA for use by authorized laboratories. This test has been authorized only for detection of nucleic acid from 2019-nCoV, not for any other viruses or pathogens. This test is only authorized for the duration of the declaration that circumstances exist justifying the authorization of emergency use of in vitro diagnostic tests for detection and/or diagnosis of 2019-nCoV under section 564(b)(1) of Act, 21 U.S.C ?? 360bbb-3(b) (1), unless the authorization is terminated or revoked sooner. Negative results do not preclude 2019-nCoV infection and should not be used as the sole basis for treatment or other patient management decisions. Negative results must be combined with clinical observations, patient history, and epidemiological information. Testing was performed using the kerwin SARS-CoV-2 assay ([employer] on the Kerwin 6800 System Performing Lab Kerwin [address] [facility] Lab 10/31/2020 11:43 EDT [facility] Swab 10/29/2020 12:0 0 EDT 10/30/2020 15:38 EDT Provider Outr Resulting Lab MICROBIOLOGY - GENERAL ORDERABLES [facility] [address] [place] [address] documented in this encounter Visit Diagnoses Not on filedocumented in this encounter Care Teams Stitch Bonding Machine Operator Relationship Specialty Start Date End Date Sheree Feliciano PA PCP - General 03/18/14 documented as of this encounter
--- OUTSIDE RECORDS SUMMARY | 2024-01-14 21:45 | XMS_ITS | Encounter Summary ---
Author Organization [facility] Address [address] [place] [address] Care Team Providers Care Sewer Contractor Name Role Phone Sheree Feliciano Primary Care Provider Unavailab le Encounter Details Date Type Department Care Team (Late st Contact Info) Description 05/27/2021 Lab Requisition [place] Pathology & Laboratory Medicine - [facility] [address] [place] [address] Outr Resulting Lab, Provider Social History Tobacco [...] Priority Date/Time Associated Diagnosis Comments ZZCOVID-19 TEST [facility] PCR Today 05/26/2021 13:45 EST COVID-19 TESTING Routine 05/26/2021 13:4 5 EST documented in this encounter Results * COVID-19 TEST [facility] PCR (05/26/2021 13:45 EST) Swab 05/26/2021 13:4 5 EST 05/27/2021 16:13 EST Provider Outr Resulting Lab MICROBIOLOGY - GENERAL ORDERABLES [facility] [address] [place] [address] * COVID-19 TESTING (05/26/2021 13:45 EST) COVID-19 rt-PCR Result Negative Negative 05/28/2021 12:43 EST [facility] Comment: This test has not [...] performed using the kerwin SARS-CoV-2 assay ([employer] on the Kerwin 6800 System Performing Lab [facility] [address] [facility] Lab 05/28/2021 12:43 EST [facility] Swab 05/26/2021 13:4 5 EST 05/27/2021 16:13 EST Provider Outr Resulting Lab MICROBIOLOGY - GENERAL ORDERABLES [facility] [address] [place] [address] documented in this encounter Visit Diagnoses Not on filedocumented in this encounter Care Teams Sewer Contractor Relationship Specialty Start Date End Date Sheree Feliciano PA PCP - General 03/18/14 documented as of this encounter
--- OUTSIDE RECORDS SUMMARY | 2024-01-14 21:45 | XMS_ITS | Encounter Summary ---
Author Organization [facility] Address [address] [place] [address] Care Team Providers Care Drawbench Operator Helper Name Role Phone Sheree Feliciano Primary Care Provider Unavailab le Encounter Details Date Type Department Care Team (Late st Contact Info) Description 05/30/2019 Lab Requisition [facility] Pathology & Laboratory Medicine - [facility] [address] [place] [address] Unknown, Provider, Social History Tobacco Use Types Packs/Day Years Used Date Smoking Tobacco: Never Assessed Sex and Gender Information Value Date Recorded Sex Assigned at Not on file Gender Identity Not on file Sexual Orientation Not on file documented as of this encounter Plan of Treatment Not on file documented as of this encounter Procedures Procedure Name Priority Date/Time Associated Diagnosis Comments PSA TOTAL, DIAGNOSTIC Routine 05/30/2019 11:38 EST documented in this encounter Results * PSA TOTAL, DIAGNOSTIC (05/30/2019 11:38 EST) PSA 0.2 0.0 - 2.5 ng/mL 05/31/2019 14:[address] [facility] Blood VENOUS BLOOD / Unknown 05/30/2019 11:38 EST 05/30/2019 15:51 EST Narrative [facility] - 05/31/2019 14:27 EST NOTE: Serum PSA concentration should not be interpreted as absolute evidence for the presence or absence of malignant disease. Assayed on Siemens ADVIA Tabbloaur XPT using chemiluminescent technology.??Values obtained by using different assay methods cannot be used interchangeably. Provider Unknown CHEMISTRY & BLOOD GA S ORDERABLES [facility] [address] [place] [address] documented in this encounter Visit Diagnoses Not on filedocumented in this encounter Care Teams Drawbench Operator Helper Relationship Specialty Start Date End Date Sheree Feliciano PA PCP - General 03/18/14 documented as of this encounter
--- OUTSIDE RECORDS SUMMARY | 2024-01-14 21:45 | XMS_ITS | Clinical Summary ---
Author Organization [facility] Address [facility] [place] [address] Care Team Providers Care Cinder Crew Worker Name Role Phone Margarito Rashid MD Primary Care Provider [phone] Allergies No known active allergies Medications Medication Sig Dispensed Refills Start Date End Date Status simvastatin (ZOCOR) 80 mg tablet 05/11/2006 Active lisinopril (PRINIVIL;ZESTRIL) 20 mg tablet 30M 1/2 Tablet(s), PO, Once daily 05/11/2006 Active buPROPion (WELLBUTRIN SR) 150 mg 12 hr tablet 300MG = 1 Tablet(s), PO, Once daily 05/11/2006 Active pantoprazole (PROTONIX) 40 mg tablet 40MG = 1 Tablet(s), PO, Once daily 05/11/2006 Active clonAZEpam (KLONOPIN) 0.5 mg tablet 0.5MG = 1 Tablet(s), PO, Once daily,PRN 05/11/2006 Active amitriptyline (Elavil) 10 mg tablet nightly. 01/11/2020 Act shahana amLODIPine (Norvasc) 5 mg tablet Take 5 mg by mouth daily. Active aspirin 81 mg chewable tablet daily. 12/22/2013 Active Jardiance 10 mg tablet Take 10 mg by mouth daily. Active hydroCHLOROthiazide (Hydrodiuril) 25 mg tablet every morning. 03/14/2021 Active metFORMIN (Glucophage) 1,000 mg tablet Twice a day 08/08/2020 Active metoprolol succinate XL (Toprol-XL) 200 mg ER 24 hr tablet Take 200 mg by mouth daily. Active Ozempic 0.25 mg or 0.5 mg (2 mg/3 mL) Pen Injector INJECT 0.5MG UNDER THE SKIN ONCE WEEKLY; REPLACES RYBELSUS 10/19/2022 Active omeprazole (PriLOSEC) [address] capsule Take 40 mg by mouth daily. Active Phenyleph-Promethazin e-Cod (Promethazine VC-Codeine) 6.25-5-10 mg/5 mL Syrup Q6H 08/07/2021 Active pseudoephedrine (Sudafed) 30 mg tablet Q6H 03/14/2020 Active insulin aspart U-100 (NovoLOG) 100 unit/mL (3 mL) Insulin Pen Before meals 06/01/2021 Acti ve Insulin Basaglar KwikPen U-100 100 unit/mL (3 mL) pen INJECT 84 UNITS UNDER THE SKIN DAILY Active Active Problems Problem Noted Date Diagnosed Date Lichen sclerosus of penis 11/26/2022 Acquired buried penis 11/26/2022 Social History Tobacco Use Types Packs/Day Years Used Date Smoking Tobacco: Never Assessed Sex and Gender Information Value Date Recorded Sex Assigned at Not on file Gender Identity Not on file Sexual Orientation Not on file Last Filed Vital Signs Vital Sign Reading Time Taken Comments Blood Pressure 139/84 11/26/2022 1:10 PM EDT Pulse 78 11/26/2022 1:10 PM EDT Temperature 36.5 ??C (97.7 ??F) 11/26/2022 1:10 PM ED T Respiratory Rate 18 11/26/2022 1:10 PM EDT Oxygen Saturation 96% 11/26/2022 1:10 PM EDT Inhaled Oxygen Concentration - - Weight - - Height - - Body Mass Index - - Plan of Treatment Upcoming Encounters Date Type Department Care Team (Late st Contact Info) Description 02/13/2024 2:15 PM EDT Office Visit [place] [address] Jacek Perdomo MD [facility] [place] [place] [address] Health Maintenance Due Date Last Done Comments CT Colonography 1974 Colonoscopy 1974 Colorectal Cancer Screening 1974 FIT DNA 1974 FIT 1974 Sigmoidoscopy (10 year) with FIT yearly 1974 Sigmoidoscopy 1974 HIV screen 1992 Hepatitis C Screening 1992 Hepatitis B vaccine (0-59 yrs) (1) 1993 Tdap adult 1993 Tetanus vaccine 1993 Covid-19 Vaccine (1 - season) 2023 Influenza (Flu) vaccine (1 o f 1 - Influenza standard series) 12/25/2023 Care Teams Cinder Crew Worker Relationship Specialty Start Date End Date Margarito Rashid MD [address] [place] [address] PCP - General Family Medicine 09/20/21
--- NOTE | 2024-01-14 22:15 | ED.GENADUL_ITS ---
Discharge Plan Disposition Patient Disposition: Home Condition: Good Discharge Details Clinical Impression: Strep pharyngitis Primary Care Provider: Margarito Rashid ED Provider: Afia Oliveira Home Meds and New Rx's Prescriptions: New amoxicillin 500 mg capsule 500 mg PO BID Qty: 18 0RF Continued (DME) pen needle, diabetic 31 gauge x 1/6 needle 1 ea Miscellaneous TID Qty: 360 3RF Rx Instructions: inject 4 x/day ketoconazole 2 % cream 1 applic topical DAILY 90 Days Qty: 60 3RF albuterol sulfate [Ventolin HFA] 90 mcg/actuation HFA aerosol inhaler 2 puff inhalation QID PRN (Reason: shortness of breath or wheezing) Qty: 8.5 5RF amitriptyline 10 mg tablet 10 mg PO QHS Qty: 30 2RF amlodipine 5 mg tablet 5 mg PO DAILY Qty: 90 3RF omeprazole 40 mg capsule,delayed release(DR/EC) 40 mg PO DAILY Qty: 90 3RF cpap Inhalation clonazepam 0.5 mg tablet 0.5 mg PO BID PRN (Reason: panic attack) Qty: 15 0RF multivitamin [Daily Vitamin] 1 EACH tablet 1 ea PO DAILY (DME) Aerochamber Plus Flow-Vu 1 EACH spacer 1 ea Miscellaneous PRN Qty: 1 0RF (DME) Blood Glucose Test Strip 1 ea Miscellaneous TID Qty: 300 4RF Rx Instructions: test TID (DME) lancets 28 gauge misc 1 ea Miscellaneous TID Qty: 300 4RF Rx Instructions: test TID (DME) blood-glucose meter [Accu-Chek Rody Plus Meter] Misc See Rx Instructions .ROUTE .MEDSUPPLY Qty: 1 0RF Rx Instructions: As directed (DME) lancets [OneTouch Delica Lancets] 33 gauge misc See Rx Instructions .ROUTE DAILY Qty: 300 4RF Rx Instructions: E11.9 TID (DME) blood-glucose meter Misc See Rx Instructions .ROUTE .MEDSUPPLY Qty: 1 0RF Rx Instructions: E11.9 verio meter (DME) Blood Glucose Test Strip See Rx Instructions .ROUTE .MEDSUPPLY Qty: 400 5RF Rx Instructions: AC and HS E11.9 on insulin; one touch verio test strip insulin aspart U-100 [Novolog FlexPen U-100 Insulin] 100 unit/mL (3 mL) insulin pen 20 - 25 unit subcut AC MDD 75 units/day Qty: 15 4RF Rx Instructions: E11.9 lisinopril 40 mg tablet 40 mg PO DAILY Qty: 90 3RF hydrochlorothiazide 25 mg tablet 25 mg PO QAM Qty: 90 4RF spironolactone [Aldactone] 25 mg tablet 25 mg PO DAILY Qty: 90 3RF metoprolol succinate 200 mg tablet extended release 24 hr 200 mg PO DAILY Qty: 90 3RF Jardiance 10 mg tablet 10 mg PO DAILY Qty: 90 3RF Xarelto 20 mg tablet 20 mg PO DAILY Qty: 90 3RF Rx Instructions: must administer with evening meal tirzepatide 10 mg/0.5 mL pen injector 10 mg subcut QWEEK 28 Days Qty: 2 0RF Rx Instructions: fill when he is finished the 5 mg dosing ondansetron 4 mg tablet,disintegrating 4 mg PO Q8H PRNQty: 20 0RF Discharge Instructions Instructions: Strep throat in adults Additional Instructions: Please follow up with [facility] on Tuesday for reassessment if you continue to have sore throat. Take the amoxicillin for the full course as prescribed. Drink plenty of iced drinks, then advance to soups. You may use tylenol 650 mg every 6 hours as needed for discomfort. Return to emergency care if you develop difficulty swallowing (not just pain), inability to drink liquids, muffled voice, swelling on one side of your neck, difficulty breathing, or if you are very worried and need to be rechecked again immediately. Referrals: Margarito Rashid MD [Primary Care Provider] - [facility] General Date/Time Provider Initiated Documentation: 01/14/24 21:41 . [facility] Narrative: Amadou is a 48-year-old male who presents to the emergency department today for evaluation of sore throat with frontal headache since last night. He reports that he took some Sudafed and antihistamine last night with little improvement symptoms, said that his sore throat went from being one-sided to bilateral. Sore throat is worsened with swallowing. He also reports chills. No recorded fever, vision changes, ear pain, difficulty swallowing, difficulty breathing, nausea/vomiting, abdominal pain. He does have T2DM. Grandkids visited last week, they were sick with strep but he did not see them directly. No history of frequent strep throat, antibiotic allergies, or throat surgeries. Physical exam remarkable for bilateral tonsillar hypertrophy with erythema and white patches. Full painless range of motion of neck. No cervical submandibular lymphadenopathy. Clear voice. Easy work of breathing. History and presentation consistent with strep throat, especially with positive strep test. No red flags concerning for peritonsillar or retropharyngeal abscess or other serious systemic complications at this time. Will treat with amoxicillin and have patient follow-up if any concerns. Reviewed red flags indicate need for return to emergency care, including signs of airway compromise. He is agreeable with plan of care. Related Data Home Medications ?Medication ?Instructions ?Recorded ?Confirmed multivitamin (Daily Vitamin tablet) 1 ea PO DAILY 06/04/13 01/14/24 inhalational spacing device #1 unit 05/23/17 01/14/24 (Aerochamber Plus Flow-Vu) cpap inhalation 10/11/18 12/08/23 pen needle, diabetic 31 gauge x #360 ea 09/05/19 01/14/24/ clonazepam 0.5 mg tablet 0.5 mg PO BID PRN panic attack #15 02/13/21 01/14/24 tab-caps blood sugar diagnostic (Blood #300 strips 10/27/21 01/14/24 Glucose Test strips) blood-glucose meter (Accu-Chek #1 ea 10/27/21 01/14/24 Rody Plus Meter) lancets 28 gauge #300 ea 10/27/21 01/14/24 blood sugar diagnostic (Blood #400 ea 10/29/21 01/14/24 Glucose Test strips) blood-glucose meter #1 ea 10/29/21 01/14/24 lancets 33 gauge (OneTouch Delica #300 ea 10/29/21 01/14/24 Lancets) Novolog FlexPen U-100 Insulin 100 20 - 25 unit (0.2 - 0.25 mL) 07/22/22 01/14/24 unit/mL (3 mL) subcutaneous subcut AC #15 mL (insulin aspart U-100) lisinopril 40 mg tablet 40 mg PO DAILY #90 tabs 01/15/23 01/14/24 ketoconazole 2 % topical cream 1 applic topical DAILY 3 months 02/01/23 01/14/24 #60 grams ondansetron 4 mg disintegrating 4 mg PO Q8H PRN #20 tabs 03/06/23 01/14/24 tablet hydrochlorothiazide 25 mg tablet 25 mg PO QAM #90 tab-caps 03/23/23 01/14/24 spironolactone 25 mg tablet 25 mg PO DAILY #90 tabs 05/23/23 01/14/24 (Aldactone) metoprolol succinate 200 mg 200 mg PO DAILY #90 tabs 05/26/23 01/14/24 tablet,extended release 24 hr albuterol sulfate 90 mcg/actuation 2 puff inhalation QID PRN 06/01/23 01/14/24 aerosol inhaler (Ventolin HFA) shortness of breath or wheezing #8.5 grams amitriptyline 10 mg tablet 10 mg PO QHS #30 tabs 06/01/23 01/14/24 amlodipine 5 mg tablet 5 mg PO DAILY #90 tabs 06/01/23 01/14/24 omeprazole 40 mg capsule,delayed 40 mg PO DAILY #90 caps 06/01/23 01/14/24 release empagliflozin 10 mg tablet 10 mg PO DAILY #90 tabs 11/22/23 01/14/24 (Jardiance) rivaroxaban 20 mg tablet (Xarelto) 20 mg PO DAILY #90 tabs 12/27/23 01/14/24 tirzepatide 10 mg/0.5 mL 10 mg (0.5 mL) subcut QWEEK 4 01/04/24 01/14/24 subcutaneous pen injector weeks #2 mL amoxicillin 500 mg capsule 500 mg PO BID #18 caps 01/14/24 Previous Rx's ?Medication ?Instructions ?Recorded inhalational spacing device #1 unit 05/23/17 (Aerochamber Plus Flow-Vu) pen needle, diabetic 31 gauge x #360 ea 09/05/19 1/ clonazepam 0.5 mg tablet 0.5 mg PO BID PRN panic attack #15 02/13/21 tab-caps blood sugar diagnostic (Blood #300 strips 10/27/21 Glucose Test strips) blood-glucose meter (Accu-Chek #1 ea 10/27/21 Rody Plus Meter) lancets 28 gauge #300 ea 10/27/21 blood sugar diagnostic (Blood #400 ea 10/29/21 Glucose Test strips) blood-glucose meter #1 ea 10/29/21 lancets 33 gauge (OneTouch Delica #300 ea 10/29/21 Lancets) Novolog FlexPen U-100 Insulin 100 20 - 25 unit (0.2 - 0.25 mL) 07/22/22 unit/mL (3 mL) subcutaneous subcut AC #15 mL (insulin aspart U-100) lisinopril 40 mg tablet 40 mg PO DAILY #90 tabs 01/15/23 ketoconazole 2 % topical cream 1 applic topical DAILY 3 months 02/01/23 #60 grams ondansetron 4 mg disintegrating 4 mg PO Q8H PRN #20 tabs 03/06/23 tablet hydrochlorothiazide 25 mg tablet 25 mg PO QAM #90 tab-caps 03/23/23 spironolactone 25 mg tablet 25 mg PO DAILY #90 tabs 05/23/23 (Aldactone) metoprolol succinate 200 mg 200 mg PO DAILY #90 tabs 05/26/23 tablet,extended release 24 hr albuterol sulfate 90 mcg/actuation 2 puff inhalation QID PRN 06/01/23 aerosol inhaler (Ventolin HFA) shortness of breath or wheezing #8.5 grams amitriptyline 10 mg tablet 10 mg PO QHS #30 tabs 06/01/23 amlodipine 5 mg tablet 5 mg PO DAILY #90 tabs 06/01/23 omeprazole 40 mg capsule,delayed 40 mg PO DAILY #90 caps 06/01/23 release empagliflozin 10 mg tablet 10 mg PO DAILY #90 tabs 11/22/23 (Jardiance) rivaroxaban 20 mg tablet (Xarelto) 20 mg PO DAILY #90 tabs 12/27/23 tirzepatide 10 mg/0.5 mL 10 mg (0.5 mL) subcut QWEEK 4 01/04/24 subcutaneous pen injector weeks #2 mL amoxicillin 500 mg capsule 500 mg PO BID #18 caps 01/14/24 Allergies Allergy/AdvReac Type Severity Reaction Status Date / Time No Known Allergies Allergy Verified 10/02/23 11:28 General Stated Complaint: Sorethroat ARLEY: 4 Review of Systems Narrative: see HPI Exam Const General: cooperative, healthy appearing, comfortable, no acute distress, well developed and well groomed Orientation: alert and oriented x3 HENMT Head: normal to inspection Ears: hearing grossly normal bilaterally General nose exam: external nose normal Mouth: oral mucosae normal, lip normal, tongue normal, salivary ducts normal, moist mucous membranes, no audible dysphonia, no drooling, no muffled voice and No restricted motion Teeth and gingiva: dentition normal Throat: uvula midline, abnormal tonsil bilaterally erythema, exudates and hypertrophy and no peritonsillar masses Neck Neck: normal visual inspection, full ROM and no lymphadenopathy Resp Effort & Inspection: normal respiratory effort and able to speak in complete sentences Course Vital Signs Vital signs: Vital Signs Temperature 37.3 C 01/14/24 21:22 Pulse 93 H 01/14/24 21:22 Respiratory Rate 16 01/14/24 21:22 Blood Pressure 137/62 01/14/24 21:22 Temperature 37.3 C 01/14/24 21:22 Pulse 93 H 01/14/24 21:22 Respiratory Rate 16 01/14/24 21:22 Blood Pressure 137/62 01/14/24 21:22 Pain Level 4 01/14/24 21:22 Lab/Test Results Lab/Test Results: POC Strep Test-MICK(Rapid) Start: 01/14/24 21:29 Freq: .Rapid Strep Test Status: Active Protocol: Document 01/14/24 21:40 GC (Rec: 01/14/24 21:40 GC [id number]) Strep test-MICK(Rapid)-POC POC-Strep test-MICK (Rapid) Positive POC-Strep test-MICK (Rapid) Positive Medical Decision Making Quality:SDOH Health Related Social Needs: No Data to Display PFSH All Active Problems (Updated 01/14/24 @ 22:11 by Afia Pierce) Strep pharyngitis (Acute) Left-sided sensorineural hearing loss (Acute) Excessive cerumen in both ear canals (Acute) Tinea pedis (Acute) Peripheral neuropathy (Acute) Type 2 diabetes mellitus with peripheral neuropathy (Acute) Diabetes mellitus with peripheral angiopathy (Acute) Tinnitus, bilateral (Acute) Impacted cerumen, right ear (Acute) Skin lesion (Acute) Neuropathy, diabetic (Acute) Venous insufficiency (Acute) Nail dystrophy (Acute) Erectile dysfunction (Acute) W/ turtling of penis Tendonitis of left rotator cuff (Acute) Bursitis of left shoulder (Acute) Arthritis of left glenohumeral joint (Acute) Arthritis of left acromioclavicular joint (Acute) Screening for colon cancer (Acute) Skin tags, multiple acquired (Acute) Shoulder pain, left (Acute) Face lesion (Acute) Edema (Acute) Hemoptysis, unspecified (Acute) Dental abscess (Acute) Morbid obesity (Acute) BXO (balanitis xerotica obliterans) (Acute) Cough (Acute) Onychomycosis (Acute) Diabetic neuropathy, type II diabetes mellitus (Acute) Dysuria (Acute) BPH w urinary obs/LUTS (Chronic) trial the tamsulosin Myrick's palsy (Acute) History of umbilical hernia repair (Acute) Ventral hernia (Acute 07/16/13) Not currently working due to disabled status (Acute 03/15/13) Type II diabetes mellitus, uncontrolled (Acute) Temporomandibular joint disorder (Acute) Smoker (Acute) Obstructive sleep apnea syndrome (Acute) C-PAP Hyperlipidemia (Acute) Gastroesophageal reflux disease (Acute) Essential hypertension (Chronic 01/24/13) we'll have him back in a week or so for bp recheck Elev transaminase/LDH (Acute 09/26/12) fatty liver on [place] alcohol abuse Myrick's palsy (Acute) Anxiety (Acute) panic attacks depression Surgical History Repair of umbilical hernia Social History Smoking/Tobacco Use Status: Current-Occasional Tobacco Type: cigarettes and e- cigarettes Tobacco: How many years used: 33 Quit status: has quit before Second Hand Exposure: Yes Smoking risk assessment performed?: Yes Alcohol Intake: current Alcohol Intake frequency: a few times a month Alcohol type: hard liquor Drug use: Never Substance use type: does not use Housing: house Current gender identity: male What type of physical activity do you participate in: other Details: bowling 2x week Duration: 60-90 minutes/day Frequency: 1-2 times per week Special ti needs: No Seatbelt use: sometimes Helmet use: No Drive intox or ride w/intox vending route driver: No Do you feel safe at home: Yes Do you feel safe in your relationship?: Yes
[2024-01-14] MEDS: Amoxicillin 500 MG CAP 1000 MG PO (22:20)
== END 2024-01-14 22:27 | disposition home or self-care (01) ==
PROVIDERS: Emergency Provider Nurse Practitioner Family; PCP Family Medicine
DX: J02.0 Streptococcal pharyngitis (principal)
CPT/HCPCS: 87637; 87880; 99283; 99284

== ENCOUNTER 2024-01-15 06:37 | Emergency (ER) | payer MEDICARE, MEDICAID, SELFPAY ==
[2024-01-15 07:01] VITALS: BP 128/83; PULSE 95; RESP 18; O2SAT 100
[2024-01-15 07:03] VITALS: BP 128/83; PULSE 95; RESP 18; O2SAT 100
--- NOTE | 2024-01-15 07:10 | ED.GENADUL_ITS ---
Discharge Plan Disposition Patient Disposition: Home Condition: Stable Discharge Details Clinical Impression: Strep pharyngitis Primary Care Provider: Margarito Rashid ED Provider: Elvin Lin Home Meds and New Rx's Prescriptions: No Action (DME) pen needle, diabetic 31 gauge x 1/6 needle 1 ea Miscellaneous TID Qty: 360 3RF Rx Instructions: inject 4 x/day ketoconazole 2 % cream 1 applic topical DAILY 90 Days Qty: 60 3RF albuterol sulfate [Ventolin HFA] 90 mcg/actuation HFA aerosol inhaler 2 puff inhalation QID PRN (Reason: shortness of breath or wheezing) Qty: 8.5 5RF amitriptyline 10 mg tablet 10 mg PO QHS Qty: 30 2RF amlodipine 5 mg tablet 5 mg PO DAILY Qty: 90 3RF omeprazole 40 mg capsule,delayed release(DR/EC) 40 mg PO DAILY Qty: 90 3RF cpap Inhalation clonazepam 0.5 mg tablet 0.5 mg PO BID PRN (Reason: panic attack) Qty: 15 0RF multivitamin [Daily Vitamin] 1 EACH tablet 1 ea PO DAILY (DME) Aerochamber Plus Flow-Vu 1 EACH spacer 1 ea Miscellaneous PRN Qty: 1 0RF (DME) Blood Glucose Test Strip 1 ea Miscellaneous TID Qty: 300 4RF Rx Instructions: test TID (DME) lancets 28 gauge misc 1 ea Miscellaneous TID Qty: 300 4RF Rx Instructions: test TID (DME) blood-glucose meter [Accu-Chek Rody Plus Meter] Misc See Rx Instructions .ROUTE .MEDSUPPLY Qty: 1 0RF Rx Instructions: As directed (DME) lancets [OneTouch Delica Lancets] 33 gauge misc See Rx Instructions .ROUTE DAILY Qty: 300 4RF Rx Instructions: E11.9 TID (DME) blood-glucose meter Misc See Rx Instructions .ROUTE .MEDSUPPLY Qty: 1 0RF Rx Instructions: E11.9 verio meter (DME) Blood Glucose Test Strip See Rx Instructions .ROUTE .MEDSUPPLY Qty: 400 5RF Rx Instructions: AC and HS E11.9 on insulin; one touch verio test strip insulin aspart U-100 [Novolog FlexPen U-100 Insulin] 100 unit/mL (3 mL) insulin pen 20 - 25 unit subcut AC MDD 75 units/day Qty: 15 4RF Rx Instructions: E11.9 lisinopril 40 mg tablet 40 mg PO DAILY Qty: 90 3RF hydrochlorothiazide 25 mg tablet 25 mg PO QAM Qty: 90 4RF spironolactone [Aldactone] 25 mg tablet 25 mg PO DAILY Qty: 90 3RF metoprolol succinate 200 mg tablet extended release 24 hr 200 mg PO DAILY Qty: 90 3RF Jardiance 10 mg tablet 10 mg PO DAILY Qty: 90 3RF Xarelto 20 mg tablet 20 mg PO DAILY Qty: 90 3RF Rx Instructions: must administer with evening meal tirzepatide 10 mg/0.5 mL pen injector 10 mg subcut QWEEK 28 Days Qty: 2 0RF Rx Instructions: fill when he is finished the 5 mg dosing amoxicillin 500 mg capsule 500 mg PO BID Qty: 18 0RF ondansetron 4 mg tablet,disintegrating 4 mg PO Q8H PRNQty: 20 0RF Discharge Instructions Additional Instructions: * No signs of more severe infection at this time * Please take the antibiotics as prescribed * You can take Tylenol every 4 hours or Motrin every 6 hours, alternating the so that you are taking the medication around every 3 hours can be helpful to control your pain * Warm salt water gargles or snid-gel-pmnqyde lozenges, cold drinks like smoothies can be helpful as well HPI General Date/Time Provider Initiated Documentation: 01/15/24 06:47 . Limitations to Documentation: no limitations . Information obtained by: patient and old records reviewed . HPI Narrative: 48-year-old gentleman with past medical history including diabetes presents for reevaluation of sore throat. Patient was in the emergency department less than 12 hours ago and diagnosed with strep pharyngitis. He was given his first dose of amoxicillin. He reports that he took Tylenol around midnight, but has not taken any additional pain medication throughout the night or this morning. He reports that he was told to return to the emergency department if he still had pain. He reports painful swallowing, some voice change, no inability to swallow, no swelling on one side of his neck. Related Data Home Medications ?Medication ?Instructions ?Recorded ?Confirmed multivitamin (Daily Vitamin tablet) 1 ea PO DAILY 06/04/13 01/14/24 inhalational spacing device #1 unit 05/23/17 01/14/24 (Aerochamber Plus Flow-Vu) cpap inhalation 10/11/18 12/08/23 pen needle, diabetic 31 gauge x #360 ea 09/05/19 01/14/24 1/6 clonazepam 0.5 mg tablet 0.5 mg PO BID PRN panic attack #15 02/13/21 01/14/24 tab-caps blood sugar diagnostic (Blood #300 strips 10/27/21 01/14/24 Glucose Test strips) blood-glucose meter (Accu-Chek #1 ea 10/27/21 01/14/24 Rody Plus Meter) lancets 28 gauge #300 ea 10/27/21 01/14/24 blood sugar diagnostic (Blood #400 ea 10/29/21 01/14/24 Glucose Test strips) blood-glucose meter #1 ea 10/29/21 01/14/24 lancets 33 gauge (OneTouch Delica #300 ea 10/29/21 01/14/24 Lancets) Novolog FlexPen U-100 Insulin 100 20 - 25 unit (0.2 - 0.25 mL) 07/22/22 01/14/24 unit/mL (3 mL) subcutaneous subcut AC #15 mL (insulin aspart U-100) lisinopril 40 mg tablet 40 mg PO DAILY #90 tabs 01/15/23 01/14/24 ketoconazole 2 % topical cream 1 applic topical DAILY 3 months 02/01/23 01/14/24 #60 grams ondansetron 4 mg disintegrating 4 mg PO Q8H PRN #20 tabs 03/06/23 01/14/24 tablet hydrochlorothiazide 25 mg tablet 25 mg PO QAM #90 tab-caps 03/23/23 01/14/24 spironolactone 25 mg tablet 25 mg PO DAILY #90 tabs 05/23/23 01/14/24 (Aldactone) metoprolol succinate 200 mg 200 mg PO DAILY #90 tabs 05/26/23 01/14/24 tablet,extended release 24 hr albuterol sulfate 90 mcg/actuation 2 puff inhalation QID PRN 06/01/23 01/14/24 aerosol inhaler (Ventolin HFA) shortness of breath or wheezing #8.5 grams amitriptyline 10 mg tablet 10 mg PO QHS #30 tabs 06/01/23 01/14/24 amlodipine 5 mg tablet 5 mg PO DAILY #90 tabs 06/01/23 01/14/24 omeprazole 40 mg capsule,delayed 40 mg PO DAILY #90 caps 06/01/23 01/14/24 release empagliflozin 10 mg tablet 10 mg PO DAILY #90 tabs 11/22/23 01/14/24 (Jardiance) rivaroxaban 20 mg tablet (Xarelto) 20 mg PO DAILY #90 tabs 12/27/23 01/14/24 tirzepatide 10 mg/0.5 mL 10 mg (0.5 mL) subcut QWEEK 4 01/04/24 01/14/24 subcutaneous pen injector weeks #2 mL amoxicillin 500 mg capsule 500 mg PO BID #18 caps 01/14/24 Previous Rx's ?Medication ?Instructions ?Recorded inhalational spacing device #1 unit 05/23/17 (Aerochamber Plus Flow-Vu) pen needle, diabetic 31 gauge x #360 ea 09/05/1904/30 clonazepam 0.5 mg tablet 0.5 mg PO BID PRN panic attack #15 02/13/21 tab-caps blood sugar diagnostic (Blood #300 strips 10/27/21 Glucose Test strips) blood-glucose meter (Accu-Chek #1 ea 10/27/21 Rody Plus Meter) lancets 28 gauge #300 ea 10/27/21 blood sugar diagnostic (Blood #400 ea 10/29/21 Glucose Test strips) blood-glucose meter #1 ea 10/29/21 lancets 33 gauge (OneTouch Delica #300 ea 10/29/21 Lancets) Novolog FlexPen U-100 Insulin 100 20 - 25 unit (0.2 - 0.25 mL) 07/22/22 unit/mL (3 mL) subcutaneous subcut AC #15 mL (insulin aspart U-100) lisinopril 40 mg tablet 40 mg PO DAILY #90 tabs 01/15/23 ketoconazole 2 % topical cream 1 applic topical DAILY 3 months 02/01/23 #60 grams ondansetron 4 mg disintegrating 4 mg PO Q8H PRN #20 tabs 03/06/23 tablet hydrochlorothiazide 25 mg tablet 25 mg PO QAM #90 tab-caps 03/23/23 spironolactone 25 mg tablet 25 mg PO DAILY #90 tabs 05/23/23 (Aldactone) metoprolol succinate 200 mg 200 mg PO DAILY #90 tabs 05/26/23 tablet,extended release 24 hr albuterol sulfate 90 mcg/actuation 2 puff inhalation QID PRN 06/01/23 aerosol inhaler (Ventolin HFA) shortness of breath or wheezing #8.5 grams amitriptyline 10 mg tablet 10 mg PO QHS #30 tabs 06/01/23 amlodipine 5 mg tablet 5 mg PO DAILY #90 tabs 06/01/23 omeprazole 40 mg capsule,delayed 40 mg PO DAILY #90 caps 06/01/23 release empagliflozin 10 mg tablet 10 mg PO DAILY #90 tabs 11/22/23 (Jardiance) rivaroxaban 20 mg tablet (Xarelto) 20 mg PO DAILY #90 tabs 12/27/23 tirzepatide 10 mg/0.5 mL 10 mg (0.5 mL) subcut QWEEK 4 01/04/24 subcutaneous pen injector weeks #2 mL amoxicillin 500 mg capsule 500 mg PO BID #18 caps 01/14/24 Allergies Allergy/AdvReac Type Severity Reaction Status Date / Time No Known Allergies Allergy Verified 10/02/23 11:28 General Stated Complaint: Sorethroat ARLEY: 4 Exam Narrative Exam Narrative: Review of Systems: All systems reviewed & are unremarkable except as noted in HPI and below Well-developed, no acute distress NCAT Posterior oropharynx with mild tonsillar enlargement and bilateral exudates, no unilateral swelling, uvula is midline No significant cervical adenopathy the or unilateral neck swelling, no neck tenderness Full range of motion of the neck No significant voice change, no hot potato voice, no trismus RRR Unlabored respiratory effort Course Vital Signs Vital signs: Vital Signs Pulse 95 H 01/15/24 07:01 Respiratory Rate 18 01/15/24 07:01 Blood Pressure 128/83 01/15/24 07:01 Pulse Oximetry 100 01/15/24 07:01 Pulse 95 H 01/15/24 07:03 Respiratory Rate 18 01/15/24 07:03 Blood Pressure 128/83 01/15/24 07:03 Blood Pressure Position Sitting 01/15/24 07:03 Pulse Oximetry 100 01/15/24 07:03 Oxygen Delivery Method Room Air 01/15/24 07:03 Oxygen Flow Rate 0 01/15/24 07:03 Pain Level 8 01/15/24 07:03 Medical Decision Making Reevaluation of strep pharyngitis. Patient was diagnosed last evening and has only taken 1 dose of amoxicillin. Given his history of diabetes, steroids would not be indicated in this patient. He has absolutely no signs of [employer] or RPA at this time. He has not taken any analgesia medication in over 7 hours. I have recommended that he take Motrin and Tylenol at the frequency allowed and as well as take his morning dose of antibiotic. The patient was also encouraged to use [id number] throat lozenges for further pain control. At this time there is no indication for change in treatment plan. Quality:SDOH Health Related Social Needs: No Data to Display PFSH All Active Problems Strep pharyngitis (Acute) Left-sided sensorineural hearing loss (Acute) Excessive cerumen in both ear canals (Acute) Tinea pedis (Acute) Peripheral neuropathy (Acute) Type 2 diabetes mellitus with peripheral neuropathy (Acute) Diabetes mellitus with peripheral angiopathy (Acute) Tinnitus, bilateral (Acute) Impacted cerumen, right ear (Acute) Skin lesion (Acute) Neuropathy, diabetic (Acute) Venous insufficiency (Acute) Nail dystrophy (Acute) Erectile dysfunction (Acute) W/ turtling of penis Tendonitis of left rotator cuff (Acute) Bursitis of left shoulder (Acute) Arthritis of left glenohumeral joint (Acute) Arthritis of left acromioclavicular joint (Acute) Screening for colon cancer (Acute) Skin tags, multiple acquired (Acute) Shoulder pain, left (Acute) Face lesion (Acute) Edema (Acute) Hemoptysis, unspecified (Acute) Dental abscess (Acute) Morbid obesity (Acute) BXO (balanitis xerotica obliterans) (Acute) Cough (Acute) Onychomycosis (Acute) Diabetic neuropathy, type II diabetes mellitus (Acute) Dysuria (Acute) BPH w urinary obs/LUTS (Chronic) trial the tamsulosin Myrick's palsy (Acute) History of umbilical hernia repair (Acute) Ventral hernia (Acute 07/16/13) Not currently working due to disabled status (Acute 03/15/13) Type II diabetes mellitus, uncontrolled (Acute) Temporomandibular joint disorder (Acute) Smoker (Acute) Obstructive sleep apnea syndrome (Acute) C-PAP Hyperlipidemia (Acute) Gastroesophageal reflux disease (Acute) Essential hypertension (Chronic 01/24/13) we'll have him back in a week or so for bp recheck Elev transaminase/LDH (Acute 09/26/12) fatty liver on [place] alcohol abuse Myrick's palsy (Acute) Anxiety (Acute) panic attacks depression Surgical History Repair of umbilical hernia Social History Smoking/Tobacco Use Status: Current-Occasional Tobacco Type: cigarettes and e- cigarettes Tobacco: How many years used: 33 Quit status: has quit before Second Hand Exposure: Yes Smoking risk assessment performed?: Yes Alcohol Intake: current Alcohol Intake frequency: a few times a month Alcohol type: hard liquor Drug use: Never Substance use type: does not use Housing: house Current gender identity: male What type of physical activity do you participate in: other Details: bowling 2x week Duration: 60-90 minutes/day Frequency: 1-2 times per week Special ti needs: No Seatbelt use: sometimes Helmet use: No Drive intox 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
== END 2024-01-15 07:19 | disposition home or self-care (01) ==
PROVIDERS: Emergency Provider Emergency Medicine; PCP Family Medicine
DX: J02.0 Streptococcal pharyngitis (principal); E11.40 Type 2 diabetes mellitus with diabetic neuropathy, unspecified; I10 Essential (primary) hypertension; F17.210 Nicotine dependence, cigarettes, uncomplicated; F17.290 Nicotine dependence, other tobacco product, uncomplicated; Z79.4 Long term (current) use of insulin; Z79.84 Long term (current) use of oral hypoglycemic drugs
CPT/HCPCS: 99283

== ENCOUNTER 2024-03-02 04:49 | Emergency (ER) | payer MEDICARE, MEDICAID, SELFPAY ==
[2024-03-02 04:54] VITALS: BP 144/99; PULSE 72; RESP 18; TEMP 37.2; O2SAT 97
--- NOTE | 2024-03-02 04:59 | ED.GENADUL_ITS ---
Discharge Plan Disposition Patient Disposition: Home Condition: Good Discharge Details Clinical Impression: Acute UTI Primary Care Provider: Margarito Rashid ED Provider: Nilton Muñoz Home Meds and New Rx's Prescriptions: New cefpodoxime 200 mg tablet 200 mg PO BID Qty: 13 0RF Rx Instructions: must administer with a meal/food phenazopyridine [Pyridium] 100 mg tablet 100 mg PO TID Qty: 5 0RF Continued (DME) pen needle, diabetic 31 gauge x 1/6 needle 1 ea Miscellaneous TID Qty: 360 3RF Rx Instructions: inject 4 x/day albuterol sulfate [Ventolin HFA] 90 mcg/actuation HFA aerosol inhaler 2 puff inhalation QID PRN (Reason: shortness of breath or wheezing) Qty: 8.5 5RF amitriptyline 10 mg tablet 10 mg PO QHS Qty: 30 2RF amlodipine 5 mg tablet 5 mg PO DAILY Qty: 90 3RF omeprazole 40 mg capsule,delayed release(DR/EC) 40 mg PO DAILY Qty: 90 3RF cpap Inhalation clonazepam 0.5 mg tablet 0.5 mg PO BID PRN (Reason: panic attack) Qty: 15 0RF multivitamin [Daily Vitamin] 1 EACH tablet 1 ea PO DAILY (DME) Aerochamber Plus Flow-Vu 1 EACH spacer 1 ea Miscellaneous PRN Qty: 1 0RF (DME) Blood Glucose Test Strip 1 ea Miscellaneous TID Qty: 300 4RF Rx Instructions: test TID (DME) lancets 28 gauge misc 1 ea Miscellaneous TID Qty: 300 4RF Rx Instructions: test TID (DME) blood-glucose meter [Accu-Chek Rody Plus Meter] Misc See Rx Instructions .ROUTE .MEDSUPPLY Qty: 1 0RF Rx Instructions: As directed (DME) lancets [OneTouch Delica Lancets] 33 gauge misc See Rx Instructions .ROUTE DAILY Qty: 300 4RF Rx Instructions: E11.9 TID (DME) blood-glucose meter Misc See Rx Instructions .ROUTE .MEDSUPPLY Qty: 1 0RF Rx Instructions: E11.9 verio meter (DME) Blood Glucose Test Strip See Rx Instructions .ROUTE .MEDSUPPLY Qty: 400 5RF Rx Instructions: AC and HS E11.9 on insulin; one touch verio test strip insulin aspart U-100 [Novolog FlexPen U-100 Insulin] 100 unit/mL (3 mL) insulin pen 20 - 25 unit subcut AC MDD 75 units/day Qty: 15 4RF Rx Instructions: E11.9 hydrochlorothiazide 25 mg tablet 25 mg PO QAM Qty: 90 4RF spironolactone [Aldactone] 25 mg tablet 25 mg PO DAILY Qty: 90 3RF metoprolol succinate 200 mg tablet extended release 24 hr 200 mg PO DAILY Qty: 90 3RF Jardiance 10 mg tablet 10 mg PO DAILY Qty: 90 3RF Xarelto 20 mg tablet 20 mg PO DAILY Qty: 90 3RF Rx Instructions: must administer with evening meal lisinopril 40 mg tablet 40 mg PO DAILY Qty: 90 3RF rosuvastatin [Crestor] 40 mg tablet 20 mg PO HS Qty: 45 4RF tirzepatide 15 mg/0.5 mL pen injector 12.5 mg subcut QWEEK 28 Days Qty: 1.667 11RF ondansetron 4 mg tablet,disintegrating 4 mg PO Q8H PRNQty: 20 0RF Discharge Instructions Instructions: Urinary Tract Infection, Adult ED Additional Instructions: You were seen for urinary symptoms without concerning systemic symptoms. Urinalysis is consistent with infection and you have been started on antibiotics. You may use Pyridium for the next 2 days to help with symptoms. Be sure to take all of your antibiotic and please follow-up with primary care next week. Monitor your blood sugars. Return to ED for any back pain, abdominal pain, vomiting, mental status change, persistent fevers, other concerns. Referrals: Margarito Rashid MD [Primary Care Provider] - [facility] General Mode of arrival: ambulatory . Date/Time Provider Initiated Documentation: 03/02/24 04:59 . Limitations to Documentation: no limitations . Information obtained by: patient and RN notes reviewed . HPI Narrative: Patient presents to ED with complaint of dysuria. Patient reports that he has developed dysuria and urgency overnight. Denies any back pain, abdominal pain, vomiting. Subjectively felt like he had a fever but did not take his temperature. Denies any blood in his urine. Does have history of UTI with hematuria in the past. States it feels similar to what it started previously which is why he is presenting now. He does feel like he is emptying his bladder with urination. Pain is mostly at the end of urination. Related Data Home Medications ?Medication ?Instructions ?Recorded ?Confirmed multivitamin (Daily Vitamin tablet) 1 ea PO DAILY 06/04/13 03/02/24 inhalational spacing device #1 unit 05/23/17 03/02/24 (Aerochamber Plus Flow-Vu) cpap inhalation 10/11/18 12/08/23 pen needle, diabetic 31 gauge x #360 ea 09/05/19 03/02/2404/30 clonazepam 0.5 mg tablet 0.5 mg PO BID PRN panic attack #15 02/13/21 03/02/24 tab-caps blood sugar diagnostic (Blood #300 strips 10/27/21 03/02/24 Glucose Test strips) blood-glucose meter (Accu-Chek #1 ea 10/27/21 03/02/24 Rody Plus Meter) lancets 28 gauge #300 ea 10/27/21 03/02/24 blood sugar diagnostic (Blood #400 ea 10/29/21 03/02/24 Glucose Test strips) blood-glucose meter #1 ea 10/29/21 03/02/24 lancets 33 gauge (OneTouch Delica #300 ea 10/29/21 03/02/24 Lancets) Novolog FlexPen U-100 Insulin 100 20 - 25 unit (0.2 - 0.25 mL) 07/22/22 03/02/24 unit/mL (3 mL) subcutaneous subcut AC #15 mL (insulin aspart U-100) ondansetron 4 mg disintegrating 4 mg PO Q8H PRN #20 tabs 03/06/23 03/02/24 tablet hydrochlorothiazide 25 mg tablet 25 mg PO QAM #90 tab-caps 03/23/23 03/02/24 spironolactone 25 mg tablet 25 mg PO DAILY #90 tabs 05/23/23 03/02/24 (Aldactone) metoprolol succinate 200 mg 200 mg PO DAILY #90 tabs 05/26/23 03/02/24 tablet,extended release 24 hr albuterol sulfate 90 mcg/actuation 2 puff inhalation QID PRN 06/01/23 03/02/24 aerosol inhaler (Ventolin HFA) shortness of breath or wheezing #8.5 grams amitriptyline 10 mg tablet 10 mg PO QHS #30 tabs 06/01/23 03/02/24 amlodipine 5 mg tablet 5 mg PO DAILY #90 tabs 06/01/23 03/02/24 omeprazole 40 mg capsule,delayed 40 mg PO DAILY #90 caps 06/01/23 03/02/24 release empagliflozin 10 mg tablet 10 mg PO DAILY #90 tabs 11/22/23 03/02/24 (Jardiance) rivaroxaban 20 mg tablet (Xarelto) 20 mg PO DAILY #90 tabs 12/27/23 03/02/24 lisinopril 40 mg tablet 40 mg PO DAILY #90 tabs 01/16/24 03/02/24 rosuvastatin 40 mg tablet (Crestor) 20 mg (1/2 x 40 mg) PO HS #45 02/24/24 03/02/24 tab-caps tirzepatide 15 mg/0.5 mL 12.5 mg (0.4167 mL) subcut QWEEK 4 02/24/24 03/02/24 subcutaneous pen injector weeks #1.667 mL cefpodoxime 200 mg tablet 200 mg PO BID #13 tabs 03/02/24 phenazopyridine 100 mg tablet 100 mg PO TID #5 tabs 03/02/24 (Pyridium) Previous Rx's ?Medication ?Instructions ?Recorded inhalational spacing device #1 unit 05/23/17 (Aerochamber Plus Flow-Vu) pen needle, diabetic 31 gauge x #360 ea 09/05/19 1/6 clonazepam 0.5 mg tablet 0.5 mg PO BID PRN panic attack #15 02/13/21 tab-caps blood sugar diagnostic (Blood #300 strips 10/27/21 Glucose Test strips) blood-glucose meter (Accu-Chek #1 ea 10/27/21 Rody Plus Meter) lancets 28 gauge #300 ea 10/27/21 blood sugar diagnostic (Blood #400 ea 10/29/21 Glucose Test strips) blood-glucose meter #1 ea 10/29/21 lancets 33 gauge (OneTouch Delica #300 ea 10/29/21 Lancets) Novolog FlexPen U-100 Insulin 100 20 - 25 unit (0.2 - 0.25 mL) 07/22/22 unit/mL (3 mL) subcutaneous subcut AC #15 mL (insulin aspart U-100) ondansetron 4 mg disintegrating 4 mg PO Q8H PRN #20 tabs 03/06/23 tablet hydrochlorothiazide 25 mg tablet 25 mg PO QAM #90 tab-caps 03/23/23 spironolactone 25 mg tablet 25 mg PO DAILY #90 tabs 05/23/23 (Aldactone) metoprolol succinate 200 mg 200 mg PO DAILY #90 tabs 05/26/23 tablet,extended release 24 hr albuterol sulfate 90 mcg/actuation 2 puff inhalation QID PRN 06/01/23 aerosol inhaler (Ventolin HFA) shortness of breath or wheezing #8.5 grams amitriptyline 10 mg tablet 10 mg PO QHS #30 tabs 06/01/23 amlodipine 5 mg tablet 5 mg PO DAILY #90 tabs 06/01/23 omeprazole 40 mg capsule,delayed 40 mg PO DAILY #90 caps 06/01/23 release empagliflozin 10 mg tablet 10 mg PO DAILY #90 tabs 11/22/23 (Jardiance) rivaroxaban 20 mg tablet (Xarelto) 20 mg PO DAILY #90 tabs 12/27/23 lisinopril 40 mg tablet 40 mg PO DAILY #90 tabs 01/16/24 rosuvastatin 40 mg tablet (Crestor) 20 mg (1/2 x 40 mg) PO HS #45 02/24/24 tab-caps tirzepatide 15 mg/0.5 mL 12.5 mg (0.4167 mL) subcut QWEEK 4 02/24/24 subcutaneous pen injector weeks #1.667 mL cefpodoxime 200 mg tablet 200 mg PO BID #13 tabs 03/02/24 phenazopyridine 100 mg tablet 100 mg PO TID #5 tabs 03/02/24 (Pyridium) Allergies Allergy/AdvReac Type Severity Reaction Status Date / Time No Known Allergies Allergy Verified 03/02/24 04:56 General Stated Complaint: Urinary ARLEY: 3 Review of Systems Narrative: Per HPI Exam Narrative Exam Narrative: Const: Obese male in NAD. VS per triage. HEENT: NC/AT. Normal facial exam. Neck: Supple. Trachea midline. Lungs: Normal respiratory effort. GI: Soft/ND/NT. Back: No CVAT Neuro: A+O x 3. Normal speech, mentation, gait. Cranial nerves II - XII grossly intact. No gross motor or sensory deficit. Course Vital Signs Vital signs: Vital Signs Temperature 99.0 F 03/02/24 04:54 Pulse 72 03/02/24 04:54 Respiratory Rate 18 03/02/24 04:54 Blood Pressure 144/99 H 03/02/24 04:54 Pulse Oximetry 97 03/02/24 04:54 Temperature 99.0 F 03/02/24 04:54 Temperature Source Temporal Artery Scan 03/02/24 04:54 Pulse 72 03/02/24 04:54 Respiratory Rate 18 03/02/24 04:54 Respiratory Effort Normal, Non-Labored 03/02/24 04:56 Blood Pressure 144/99 H 03/02/24 04:54 Blood Pressure Position Sitting 03/02/24 04:54 Pulse Oximetry 97 03/02/24 04:54 Oxygen Delivery Method Room Air 03/02/24 04:54 Oxygen Flow Rate 0 03/02/24 04:54 Pain Level 7 03/02/24 04:56 Medical Decision Making Patient presenting to ED with dysuria and urgency with history of UTI and gross hematuria. He had a subjective fever but never took his temperature. He is afebrile here. He looks well. He has no CVAT. He has no abdominal pain or tenderness. Bladder scan reveals 19 mL of urine present after urination. Urinalysis is consistent with acute UTI. Given lack of other symptoms and reassuring exam deferred laboratory studies at this time. Will prescribe cefpodoxime and Pyridium. Follow-up with primary care next week. Return precautions provided. Lab Data Lab results reviewed: Yes I reviewed the patient's lab results. Lab results narrative: See [facility] All Active Problems Acute UTI (Acute) Diabetes mellitus with peripheral angiopathy (Acute) Tinnitus, bilateral (Acute) Impacted cerumen, right ear (Acute) Skin lesion (Acute) Neuropathy, diabetic (Acute) Venous insufficiency (Acute) Nail dystrophy (Acute) Erectile dysfunction (Acute) W/ turtling of penis Skin tags, multiple acquired (Acute) Face lesion (Acute) Edema (Acute) Morbid obesity (Acute) BXO (balanitis xerotica obliterans) (Acute) Cough (Acute) Onychomycosis (Acute) Diabetic neuropathy, type II diabetes mellitus (Acute) Dysuria (Acute) History of umbilical hernia repair (Acute) Ventral hernia (Acute 07/16/13) Not currently working due to disabled status (Acute 03/15/13) Type II diabetes mellitus, uncontrolled (Acute) Temporomandibular joint disorder (Acute) Smoker (Acute) Elev transaminase/LDH (Acute 09/26/12) fatty liver on US alcohol abuse Medical History Obstructive sleep apnea syndrome C-PAP Hyperlipidemia Gastroesophageal reflux disease Essential hypertension (01/24/13) we'll have him back in a week or so for bp recheck Anxiety panic attacks depression BPH w urinary obs/LUTS trial the tamsulosin Type 2 diabetes mellitus with peripheral neuropathy Surgical History Repair of umbilical hernia Social History Smoking/Tobacco Use Status: Current-Occasional Tobacco Type: cigarettes and e- cigarettes Tobacco: How many years used: 33 Quit status: has quit before Second Hand Exposure: Yes Smoking risk assessment performed?: Yes Alcohol Intake: current Alcohol Intake frequency: a few times a month Alcohol type: hard liquor Drug use: Never Substance use type: does not use Housing: house Current gender identity: male What type of physical activity do you participate in: other Details: bowling 2x week Duration: 60-90 minutes/day Frequency: 1-2 times per week Special ti needs: No Seatbelt use: sometimes Helmet use: No Drive 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
[2024-03-02 05:08] LABS: Bilirubin Negative (Negative); Blood Moderate (Negative); Clarity Sl Cloudy (Clear); Glucose 250 mg/dL (Negative); Ketones Negative (Negative); Leukocyte Esterase Small (Negative); Nitrite Negative (Negative)
[2024-03-02 05:11] LABS: Bacteria Few HPF (Negative); C & S Indicated? Yes; Casts Negative LPF (Negative); Crystals Negative HPF (Negative); Epithelial Cells Rare HPF (Negative); Mucus Negative (Negative); RBC >50 HPF (0-2)
[2024-03-02] MEDS: Phenazopyridine 100 MG TAB PO (05:30)
[2024-03-02] MEDS: Cefpodoxime 200 MG TAB PO (05:30)
--- NOTE | 2024-03-02 12:56 | NUR.NOTE ---
Nursing Note: Received call from pt that [facility] in [facility] did not receive the e-scripts for cefpodoxime and pyridium. Called [facility] and spoke w/Pharmacist Hussein- verbal orders given as written by Dr. Muñoz. Pt aware.
--- NOTE | 2024-03-05 08:22 | NUR.NOTE ---
Accessed Pt chart to obtain the name of the prescriptions given to Pt upon discharge, for the specimen documents
== END 2024-03-02 05:43 | disposition home or self-care (01) ==
PROVIDERS: Emergency Provider Emergency Medicine; PCP Family Medicine
DX: N39.0 Urinary tract infection, site not specified (principal); N40.1 Benign prostatic hyperplasia with lower urinary tract symptoms; E78.5 Hyperlipidemia, unspecified; I10 Essential (primary) hypertension; E11.40 Type 2 diabetes mellitus with diabetic neuropathy, unspecified; Z79.01 Long term (current) use of anticoagulants; Z79.4 Long term (current) use of insulin; Z79.84 Long term (current) use of oral hypoglycemic drugs; Z79.85 Long-term (current) use of injectable non-insulin antidiabetic drugs
CPT/HCPCS: 87077; 99284; 81003; 81015; 87086; 87186

== ENCOUNTER → 2024-05-02 13:54 | Outpatient (BNVA) | payer MEDICARE, MEDICAID, SELFPAY | PROVIDERS: PCP Family Medicine; Referring Provider Family Medicine; Visit Provider Podiatrist | DX: E11.51 Type 2 diabetes mellitus with diabetic peripheral angiopathy without gangrene (principal); E11.42 Type 2 diabetes mellitus with diabetic polyneuropathy; G62.9 Polyneuropathy, unspecified; Z79.4 Long term (current) use of insulin; L60.3 Nail dystrophy; I87.2 Venous insufficiency (chronic) (peripheral); B35.1 Tinea unguium; B35.3 Tinea pedis; L84 Corns and callosities; R09.89 Other specified symptoms and signs involving the circulatory and respiratory systems; R60.0 Localized edema; L65.9 Nonscarring hair loss, unspecified; L60.2 Onychogryphosis; L85.8 Other specified epidermal thickening | CPT/HCPCS: 11721 ==

== ENCOUNTER 2024-07-24 08:22 | Outpatient (REF) | payer MEDICARE, MEDICAID, SELFPAY ==
--- NOTE | 2024-07-24 07:45 | SKI_PTH ---
PATIENT: Amadou Andrade LOC: [facility] U#:[id number] AGE/SX: 49/M ROOM: RE07/24/[address]: José Antonio David MD : 1975 BED: DIS: 07/24/2024 SPEC #: [id number] RECD: 07/24/24 17:23 STATUS: TON RENini #: [id number] JENNY: 07/24/24 07:[address]: José Antonio David DEPT: Surgical Specimen RECD BY: Urszula Steele ENTERED: 07/24/24 17:23 SP TYPE: SKI OTHR DR: Margarito Rashid MD Tissues: 1 - SKIN BIOPSY(SHAVE/PUNCH) Procedures: SKIN LEVEL 4 Comments: [id number]
== END 2024-07-24 08:23 | disposition home or self-care (01) ==
LOC: LBN 08:22
PROVIDERS: PCP Family Medicine; Visit Provider Otolaryngology
DX: C44.319 Basal cell carcinoma of skin of other parts of face (principal); L98.9 Disorder of the skin and subcutaneous tissue, unspecified
CPT/HCPCS: 88305

== ENCOUNTER → 2024-08-29 15:00 | Outpatient (BNVA) | payer MEDICARE, MEDICAID, SELFPAY | PROVIDERS: PCP Family Medicine; Referring Provider Family Medicine; Visit Provider Podiatrist | DX: E11.51 Type 2 diabetes mellitus with diabetic peripheral angiopathy without gangrene (principal); E11.42 Type 2 diabetes mellitus with diabetic polyneuropathy; Z79.4 Long term (current) use of insulin; L60.3 Nail dystrophy; B35.1 Tinea unguium; B35.3 Tinea pedis; I87.2 Venous insufficiency (chronic) (peripheral); L84 Corns and callosities; B07.0 Plantar wart; R09.89 Other specified symptoms and signs involving the circulatory and respiratory systems; R60.0 Localized edema; I83.93 Asymptomatic varicose veins of bilateral lower extremities; L65.9 Nonscarring hair loss, unspecified; R23.8 Other skin changes; L60.2 Onychogryphosis; L60.8 Other nail disorders; L85.8 Other specified epidermal thickening | CPT/HCPCS: 11056; 11721 ==

== ENCOUNTER 2024-12-18 21:30 | Outpatient (REF) | payer MEDICARE, MEDICAID, SELFPAY ==
[2024-12-18 22:19] LABS: COMMENT (LAB VIEW ONLY) 91.10 mg/dL; Microalb ug/mg Crea 15.6 ug/mg Cr
== END 2024-12-18 21:31 | disposition home or self-care (01) ==
LOC: LBN 21:30
PROVIDERS: PCP Family Medicine; Visit Provider Family Medicine
DX: E11.9 Type 2 diabetes mellitus without complications (principal)
CPT/HCPCS: 82043; 82570

== ENCOUNTER → 2025-01-01 12:49 | Outpatient (BNVA) | payer MEDICARE, MEDICAID, SELFPAY | PROVIDERS: PCP Family Medicine; Referring Provider Family Medicine; Visit Provider Podiatrist | DX: L60.3 Nail dystrophy (principal); B35.1 Tinea unguium; B35.3 Tinea pedis; L84 Corns and callosities; B07.0 Plantar wart; E11.51 Type 2 diabetes mellitus with diabetic peripheral angiopathy without gangrene; E11.42 Type 2 diabetes mellitus with diabetic polyneuropathy; Z79.4 Long term (current) use of insulin; R09.89 Other specified symptoms and signs involving the circulatory and respiratory systems; R60.0 Localized edema; L65.9 Nonscarring hair loss, unspecified; I83.93 Asymptomatic varicose veins of bilateral lower extremities; R25.2 Cramp and spasm; R23.8 Other skin changes; R23.4 Changes in skin texture; L60.2 Onychogryphosis; L60.8 Other nail disorders | CPT/HCPCS: 11055; 11721 ==

== ENCOUNTER → 2025-04-08 12:52 | Outpatient (BNVA) | payer MEDICARE, MEDICAID, SELFPAY | PROVIDERS: PCP Family Medicine; Referring Provider Family Medicine; Visit Provider Podiatrist | DX: L60.3 Nail dystrophy (principal); B35.1 Tinea unguium; B35.3 Tinea pedis; L84 Corns and callosities; B07.0 Plantar wart; E11.51 Type 2 diabetes mellitus with diabetic peripheral angiopathy without gangrene; E11.42 Type 2 diabetes mellitus with diabetic polyneuropathy; Z79.4 Long term (current) use of insulin; R09.89 Other specified symptoms and signs involving the circulatory and respiratory systems; R60.0 Localized edema; I83.93 Asymptomatic varicose veins of bilateral lower extremities; L65.9 Nonscarring hair loss, unspecified; R25.2 Cramp and spasm; R23.4 Changes in skin texture; L60.2 Onychogryphosis; L60.8 Other nail disorders | CPT/HCPCS: 11056; 11721 ==